=== PATIENT | female | born 1940 | race Caucasian/White ===

== ENCOUNTER 2017-08-06 17:18 | Emergency (ER) | payer BC ==
[~2017-08-06] VITALS: Ht 162.6 cm; Wt 65.8 kg
[~2017-08-06 17:18] MED LIST: ASPI81CH PO; ATEN25 PO; CALCA500CH; CHOL10002 PO
[2017-08-06 18:11] LABS: BASOPHILS ABSOLUTE AUTO 0.02 K/mm3 (0.00-0.23); BASOPHILS PERCENT AUTO 0 % (0-2); EOSINOPHILS ABSOLUTE AUTO 0.04 K/mm3 (0.00-0.68); EOSINOPHILS PERCENT AUTO 1 % (0-6); Hematocrit 40.2 % (33.0-51.0); Hemoglobin 13.2 g/dL (11.5-16.0); IMMATURE GRAN ABSOLUTE AUTO 0.03 K/mm3 (0.00-0.10); IMMATURE GRAN PERCENT AUTO 0 % (0-1); LYMPHOCYTES ABSOLUTE AUTO 0.46 K/mm3 (0.84-5.20); LYMPHOCYTES PERCENT AUTO 7 % (21-46); MONOCYTES PERCENT AUTO 6 % (4-13); Mean Corpuscular HGB 31.4 pg (26.0-34.0); Mean Corpuscular HGB Conc 32.8 g/dL (31.5-36.5); Mean Corpuscular Volume 96 fL (80-100); NEUTROPHILS ABSOLUTE AUTO 5.83 K/mm3 (1.96-9.15); NEUTROPHILS PERCENT AUTO 86 % (41-73); RDW Coefficient Variation 12.6 % (11.7-14.2); RDW Standard Deviation 43.7 fL (35.1-46.3); Red Blood Cell Count 4.21 M/mm3 (3.80-5.20); White Blood Cell Count 6.78 K/mm3 (4.00-11.30)
[2017-08-06 18:16] LABS: Mean Platelet Volume 10.8 fL (9.1-12.4); Platelet Count 100 K/mm3 (150-400)
[2017-08-06 18:28] LABS: Alanine Aminotransfer (ALT/SGP 27 U/L (12-78); Albumin, Blood 3.7 g/dL (3.4-5.0); Alk Phos 65 U/L (50-136); Anion Gap 15 mmol/L (6-16); Aspartate Aminotrans (AST/SGOT 36 U/L (12-37); Bilirubin, Total 0.8 mg/dL (0.1-1.0); Blood Urea Nitrogen 24 mg/dL (8-24); Bun/Creatinine Ratio 22.6 (12.0-20.0); CO2, Blood 24 mmol/L (21-32); Calcium, Blood 8.7 mg/dL (8.5-10.1); Chloride, Blood 103 mmol/L (98-108); Creatinine, Blood 1.06 mg/dL (0.40-1.00); Globulin, Blood 3.7 g/dL (2.2-4.0); Glomerular Filtration Rate 54 (60-); Glucose, Blood 102 mg/dL (70-99); Potassium, Blood 3.8 mmol/L (3.5-5.5); Sodium, Blood 142 mmol/L (136-145); Total Protein, Blood 7.4 g/dL (6.4-8.2); Troponin I <0.015 ng/mL (0.000-0.040)
== END 2017-08-06 19:02 | disposition home or self-care (01) ==
LOC: ER 17:18
PROVIDERS: Emergency Medicine
DX: R55 Syncope and collapse (principal); E86.0 Dehydration; I10 Essential (primary) hypertension; Z90.49 Acquired absence of other specified parts of digestive tract; Z90.89 Acquired absence of other organs
CPT/HCPCS: 36415; 71046; 80053; 82947; 84484; 85025; 93005; 93010; 99283

== ENCOUNTER 2017-08-06 21:35 | Observation (INO) | payer BC ==
[~2017-08-06] VITALS: Ht 162.6 cm; Wt 64.0 kg
[2017-08-07 00:04] LABS: CPK Creatine Kinase 123 U/L (26-193); Troponin I <0.015 ng/mL (0.000-0.040)
[2017-08-07 00:05] LABS: Magnesium, Blood 1.8 mg/dL (1.6-2.4)
[2017-08-07 00:07] LABS: Alanine Aminotransfer (ALT/SGP 31 U/L (12-78); Albumin, Blood 3.5 g/dL (3.4-5.0); Albumin/Globulin Ratio 0.9 (0.8-1.8); Alk Phos 58 U/L (50-136); Anion Gap 9 mmol/L (6-16); Aspartate Aminotrans (AST/SGOT 33 U/L (12-37); Bilirubin, Total 0.8 mg/dL (0.1-1.0); Blood Urea Nitrogen 21 mg/dL (8-24); Bun/Creatinine Ratio 21.9 (12.0-20.0); CO2, Blood 24 mmol/L (21-32); Calcium, Blood 8.3 mg/dL (8.5-10.1); Chloride, Blood 104 mmol/L (98-108); Creatinine, Blood 0.96 mg/dL (0.40-1.00); Globulin, Blood 3.8 g/dL (2.2-4.0); Glomerular Filtration Rate >60 (60-); Glucose, Blood 107 mg/dL (70-99); Potassium, Blood 3.6 mmol/L (3.5-5.5); Sodium, Blood 137 mmol/L (136-145); Total Protein, Blood 7.3 g/dL (6.4-8.2)
[2017-08-07 07:43] LABS: BASOPHILS ABSOLUTE AUTO 0.02 K/mm3 (0.00-0.23); BASOPHILS PERCENT AUTO 1 % (0-2); EOSINOPHILS ABSOLUTE AUTO 0.01 K/mm3 (0.00-0.68); EOSINOPHILS PERCENT AUTO 0 % (0-6); Hematocrit 32.9 % (33.0-51.0); Hemoglobin 11.1 g/dL (11.5-16.0); IMMATURE GRAN ABSOLUTE AUTO 0.01 K/mm3 (0.00-0.10); IMMATURE GRAN PERCENT AUTO 0 % (0-1); LYMPHOCYTES ABSOLUTE AUTO 0.64 K/mm3 (0.84-5.20); LYMPHOCYTES PERCENT AUTO 16 % (21-46); MONOCYTES ABSOLUTE AUTO 0.47 K/mm3 (0.16-1.47); MONOCYTES PERCENT AUTO 12 % (4-13); Mean Corpuscular HGB 31.9 pg (26.0-34.0); Mean Corpuscular HGB Conc 33.7 g/dL (31.5-36.5); Mean Corpuscular Volume 95 fL (80-100); Mean Platelet Volume 9.5 fL (9.1-12.4); NEUTROPHILS ABSOLUTE AUTO 2.82 K/mm3 (1.96-9.15); NEUTROPHILS PERCENT AUTO 71 % (41-73); Platelet Count 107 K/mm3 (150-400); RDW Coefficient Variation 12.6 % (11.7-14.2); RDW Standard Deviation 43.8 fL (35.1-46.3); Red Blood Cell Count 3.48 M/mm3 (3.80-5.20); White Blood Cell Count 3.97 K/mm3 (4.00-11.30)
[2017-08-07 08:00] LABS: Alanine Aminotransfer (ALT/SGP 24 U/L (12-78); Albumin/Globulin Ratio 0.9 (0.8-1.8); Alk Phos 51 U/L (50-136); Anion Gap 8 mmol/L (6-16); Aspartate Aminotrans (AST/SGOT 29 U/L (12-37); Bilirubin, Total 0.8 mg/dL (0.1-1.0); Blood Urea Nitrogen 21 mg/dL (8-24); Bun/Creatinine Ratio 22.1 (12.0-20.0); CO2, Blood 25 mmol/L (21-32); Calcium, Blood 7.8 mg/dL (8.5-10.1); Chloride, Blood 105 mmol/L (98-108); Creatinine, Blood 0.95 mg/dL (0.40-1.00); Globulin, Blood 3.3 g/dL (2.2-4.0); Glomerular Filtration Rate >60 (60-); Glucose, Blood 90 mg/dL (70-99); Potassium, Blood 3.4 mmol/L (3.5-5.5); Sodium, Blood 138 mmol/L (136-145); Total Protein, Blood 6.3 g/dL (6.4-8.2)
[2017-08-07 08:03] LABS: Troponin I 0.025 ng/mL (0.000-0.040)
[2017-08-07 12:21] LABS: Influenza A Positive (NEGATIVE); Influenza B Negative (NEGATIVE)
[2017-08-07 21:06] LABS: Source, Urine Clean Catch
[2017-08-07 21:09] LABS: Appearance, Urine Clear (Clear); Bilirubin, Urine Neg (Neg); Blood, Urine 1+ (Neg); Color, Urine Yellow (P-Yellow); Glucose Qualitative, Urine Neg (Neg); Ketones, Urine Neg (Neg); Leukocyte Esterase, Urine 2+ (Neg); Nitrite, Urine Pos (Neg); Protein, Urine Neg (Neg); Specific Gravity, Urine 1.015 (1.003-1.022); Urobilinogen, Urine NORM (Normal)
[2017-08-07 21:22] LABS: Bacteria Many /hpf; Red Blood Cells, Urine 0-2 /hpf (0-2); Squamous Epithelial Cells Few /hpf (Few)
[2017-08-08 03:49] LABS: BASOPHILS ABSOLUTE AUTO 0.03 K/mm3 (0.00-0.23); BASOPHILS PERCENT AUTO 1 % (0-2); EOSINOPHILS ABSOLUTE AUTO 0.03 K/mm3 (0.00-0.68); EOSINOPHILS PERCENT AUTO 1 % (0-6); IMMATURE GRAN ABSOLUTE AUTO 0.02 K/mm3 (0.00-0.10); IMMATURE GRAN PERCENT AUTO 0 % (0-1); LYMPHOCYTES ABSOLUTE AUTO 1.19 K/mm3 (0.84-5.20); LYMPHOCYTES PERCENT AUTO 20 % (21-46); MONOCYTES ABSOLUTE AUTO 0.59 K/mm3 (0.16-1.47); MONOCYTES PERCENT AUTO 10 % (4-13); Mean Corpuscular HGB 31.4 pg (26.0-34.0); Mean Corpuscular HGB Conc 33.3 g/dL (31.5-36.5); Mean Corpuscular Volume 94 fL (80-100); Mean Platelet Volume 10.1 fL (9.1-12.4); NEUTROPHILS ABSOLUTE AUTO 4.01 K/mm3 (1.96-9.15); NEUTROPHILS PERCENT AUTO 68 % (41-73); Platelet Count 111 K/mm3 (150-400); RDW Coefficient Variation 12.6 % (11.7-14.2); RDW Standard Deviation 43.6 fL (35.1-46.3); White Blood Cell Count 5.87 K/mm3 (4.00-11.30)
[2017-08-08 04:14] LABS: Bun/Creatinine Ratio 19.2 (12.0-20.0); Calcium, Blood 7.4 mg/dL (8.5-10.1); Creatinine, Blood 1.04 mg/dL (0.40-1.00); Potassium, Blood 3.6 mmol/L (3.5-5.5); Troponin I 0.024 ng/mL (0.000-0.040)
[2017-08-08] MEDS ORDERED: OSEL75CA PO (13:12)
== END 2017-08-08 13:59 | disposition home or self-care (01) ==
LOC: ER 21:35 → PCU 21:36
PROVIDERS: Family Medicine; Internal Medicine
DX: R55 Syncope and collapse (principal); J09.X2 Influenza due to identified novel influenza A virus with other respiratory manifestations; I12.9 Hypertensive chronic kidney disease with stage 1 through stage 4 chronic kidney disease, or unspecified chronic kidney disease; I35.0 Nonrheumatic aortic (valve) stenosis; N18.3 Chronic kidney disease, stage 3 (moderate); E86.0 Dehydration; I49.1 Atrial premature depolarization; Z88.1 Allergy status to other antibiotic agents; Z88.8 Allergy status to other drugs, medicaments and biological substances; Z91.048 Other nonmedicinal substance allergy status; Z90.49 Acquired absence of other specified parts of digestive tract; Z85.3 Personal history of malignant neoplasm of breast; Z90.89 Acquired absence of other organs
CPT/HCPCS: 36415; 70450; 80048; 80053; 81001; 82550; 83735; 84484; 85025; 87077; 87086; 87186; 87804; 93005; 93010; 93306; 93970; 96360; 96361; 99285; C1751; G0378; J1650; J7030

== ENCOUNTER 2018-07-07 07:27 | Day surgery (SDC) | payer BC ==
[~2018-07-07] VITALS: Ht 162.6 cm; Wt 60.5 kg
[~2018-07-07 07:27] MED LIST changes: +OSEL75CA PO
--- NOTE | 2018-07-07 08:23 | NUR ---
07/07/18 0823 Janel Fenton 1 IV MISS IN RW BY MEET VALVE 1 GOOD IV IN RH BY MEET PT TOW
== END 2018-07-07 10:00 | disposition home or self-care (01) ==
LOC: ORSCSDS 07:27
PROVIDERS: Internal Medicine Gastroenterology
PROC: 0DBN8ZX Excision of Sigmoid Colon, Via Natural or Artificial Opening Endoscopic, Diagnostic (ICD-10-PCS; principal; 2018-07-07 09:00)
DX: Z12.11 Encounter for screening for malignant neoplasm of colon (principal); D12.5 Benign neoplasm of sigmoid colon; K57.30 Diverticulosis of large intestine without perforation or abscess without bleeding; I10 Essential (primary) hypertension; K44.9 Diaphragmatic hernia without obstruction or gangrene; Z86.010 Personal history of colon polyps; Z79.82 Long term (current) use of aspirin; Z79.899 Other long term (current) drug therapy
CPT/HCPCS: 88305; J7120

== ENCOUNTER → 2018-12-20 | Outpatient (CLI) | payer BC ==
[2018-12-21 15:06] LABS: HPV 16 Negative (Negative); HPV 18 Negative (Negative); HPV OTHER HR TYPES Negative (Negative)
== END | disposition home or self-care (01) ==
LOC: LAB SHORT 12:39 → LAB 12:39
PROVIDERS: Obstetrics & Gynecology Gynecology
DX: Z12.4 Encounter for screening for malignant neoplasm of cervix (principal)
CPT/HCPCS: 87624; G0123

== ENCOUNTER 2019-07-05 12:04 | Emergency (ER) | payer BC ==
[~2019-07-05] VITALS: Ht 162.6 cm; Wt 59.0 kg
[~2019-07-05 12:04] MED LIST changes: -CHOL10002 PO; +VITAMIN D350 MCG PO
[2019-07-05 14:16] LABS: Hemoglobin 11.9 g/dL (11.5-16.0); Mean Corpuscular HGB 30.9 pg (26.0-34.0); Mean Corpuscular HGB Conc 33.1 g/dL (31.5-36.5); Mean Corpuscular Volume 94 fL (80-100); Mean Platelet Volume 9.8 fL (9.1-12.4); Platelet Count 275 K/mm3 (150-400); RDW Coefficient Variation 12.6 % (11.7-14.2); RDW Standard Deviation 43.4 fL (35.1-46.3); Red Blood Cell Count 3.85 M/mm3 (3.80-5.20); White Blood Cell Count 9.72 K/mm3 (4.00-11.30)
[2019-07-05 14:29] LABS: Alanine Aminotransfer (ALT/SGP 21 U/L (12-78); Albumin, Blood 2.8 g/dL (3.4-5.0); Albumin/Globulin Ratio 0.6 (0.8-1.8); Alk Phos 91 U/L (50-136); Anion Gap 11 mmol/L (6-16); Aspartate Aminotrans (AST/SGOT 21 U/L (12-37); Blood Urea Nitrogen 19 mg/dL (8-24); Bun/Creatinine Ratio 20.8 (12.0-20.0); CO2, Blood 22 mmol/L (21-32); Chloride, Blood 104 mmol/L (98-108); Creatinine, Blood 0.91 mg/dL (0.40-1.00); Globulin, Blood 4.8 g/dL (2.2-4.0); Glomerular Filtration Rate >60 (60-); Glucose, Blood 90 mg/dL (70-99); Potassium, Blood 3.9 mmol/L (3.5-5.5); Sodium, Blood 137 mmol/L (136-145); Total Protein, Blood 7.6 g/dL (6.4-8.2)
[2019-07-05 15:15] LABS: Source, Urine Clean Catch
[2019-07-05 15:17] LABS: Bilirubin, Urine Neg (Neg); Blood, Urine Neg (Neg); Glucose Qualitative, Urine Neg (Neg); Ketones, Urine 3+ (Neg); Leukocyte Esterase, Urine 1+ (Neg); Nitrite, Urine Pos (Neg); Protein, Urine 2+ (Neg); Urobilinogen, Urine NORM (Normal)
[2019-07-05 15:17] LABS: BAND PERCENT MAN 1 % (0-8); BASOPHILS PERCENT MAN 0 % (0-2); EOSINOPHILS ABSOLUTE MAN 0.09 K/mm3 (0.00-0.68); EOSINOPHILS PERCENT MAN 1 % (0-6); LYMPHOCYTES ABSOLUTE MAN 0.87 K/mm3 (0.84-5.20); LYMPHOCYTES PERCENT MAN 9 % (21-46); MONOCYTES ABSOLUTE MAN 0.58 K/mm3 (0.16-1.47); MONOCYTES PERCENT MAN 6 % (4-13); MYELOCYTE ABSOLUTE MAN 0.19 K/mm3 (0.00-0.00); MYELOCYTE PERCENT MAN 2 % (0-0); NEUTROPHILS ABSOLUTE MAN 7.97 K/mm3 (1.96-9.15); SEG NEUTROPHILS PERCENT MAN 81 % (41-73); TOTAL CELLS COUNTED 100
[2019-07-05 15:34] LABS: Appearance, Urine Hazy (Clear); Color, Urine Yellow (P-Yellow)
[2019-07-05 15:35] LABS: Bacteria Many /hpf; Red Blood Cells, Urine 0-2 /hpf (0-2); Squamous Epithelial Cells Few /hpf (Few)
[2019-07-05] MEDS ORDERED: CALCIUM 600 +1 EA11 PO (15:57)
[2019-07-05] MEDS ORDERED: ONDA4ODT MM (17:03)
[2019-07-05] MEDS ORDERED: CEFD300 PO (17:03)
[2019-07-05] MEDS ORDERED: Roxicodone5 MG PO (17:03)
[2019-07-26] MEDS ORDERED: Ferrous Sulfat325 M2 PO (05:19)
== END 2019-07-05 18:00 | disposition home or self-care (01) ==
LOC: ER 12:04
PROVIDERS: Emergency Medicine
DX: K52.9 Noninfective gastroenteritis and colitis, unspecified (principal); J18.9 Pneumonia, unspecified organism; N30.90 Cystitis, unspecified without hematuria; I12.9 Hypertensive chronic kidney disease with stage 1 through stage 4 chronic kidney disease, or unspecified chronic kidney disease; N18.9 Chronic kidney disease, unspecified; Z88.8 Allergy status to other drugs, medicaments and biological substances; Z88.1 Allergy status to other antibiotic agents; Z91.048 Other nonmedicinal substance allergy status; Z79.899 Other long term (current) drug therapy; Z79.82 Long term (current) use of aspirin
CPT/HCPCS: 36415; 74177; 80053; 81001; 83690; 85025; 87077; 87086; 87186; 93005; 93010; 96361; 96365-59; 96375; 99284-25; J0696; J1170; J1885; J2405; J7030; Q9967

== ENCOUNTER 2019-07-07 12:19 | Emergency (ER) | payer BC ==
[~2019-07-07] VITALS: Ht 162.6 cm; Wt 59.0 kg
[~2019-07-07 12:19] MED LIST changes: +CALCIUM 600 +1 EA11 PO; +CEFD300 PO; +ONDA4ODT MM; +Roxicodone5 MG PO
[2019-07-07 12:50] LABS: BASOPHILS ABSOLUTE AUTO 0.11 K/mm3 (0.00-0.23); BASOPHILS PERCENT AUTO 1 % (0-2); EOSINOPHILS PERCENT AUTO 0 % (0-6); Hematocrit 48.6 % (33.0-51.0); Hemoglobin 15.3 g/dL (11.5-16.0); IMMATURE GRAN ABSOLUTE AUTO 0.19 K/mm3 (0.00-0.10); IMMATURE GRAN PERCENT AUTO 2 % (0-1); LYMPHOCYTES ABSOLUTE AUTO 0.69 K/mm3 (0.84-5.20); LYMPHOCYTES PERCENT AUTO 7 % (21-46); MONOCYTES ABSOLUTE AUTO 0.39 K/mm3 (0.16-1.47); MONOCYTES PERCENT AUTO 4 % (4-13); Mean Corpuscular HGB 30.7 pg (26.0-34.0); Mean Corpuscular HGB Conc 31.5 g/dL (31.5-36.5); Mean Platelet Volume 10.1 fL (9.1-12.4); NEUTROPHILS ABSOLUTE AUTO 8.59 K/mm3 (1.96-9.15); NEUTROPHILS PERCENT AUTO 86 % (41-73); Platelet Count 322 K/mm3 (150-400); RDW Coefficient Variation 12.4 % (11.7-14.2); RDW Standard Deviation 44.8 fL (35.1-46.3); Red Blood Cell Count 4.98 M/mm3 (3.80-5.20); White Blood Cell Count 9.97 K/mm3 (4.00-11.30)
[2019-07-07 12:53] LABS: Mean Corpuscular Volume 98 fL (80-100)
[2019-07-07 13:12] LABS: Alanine Aminotransfer (ALT/SGP 21 U/L (12-78); Albumin, Blood 2.7 g/dL (3.4-5.0); Albumin/Globulin Ratio 0.5 (0.8-1.8); Alk Phos 95 U/L (50-136); Anion Gap 13 mmol/L (6-16); Aspartate Aminotrans (AST/SGOT 59 U/L (12-37); Bilirubin, Total 0.8 mg/dL (0.1-1.0); Blood Urea Nitrogen 16 mg/dL (8-24); Bun/Creatinine Ratio 17.6 (12.0-20.0); CO2, Blood 17 mmol/L (21-32); Calcium, Blood 8.8 mg/dL (8.5-10.1); Chloride, Blood 103 mmol/L (98-108); Creatinine, Blood 0.91 mg/dL (0.40-1.00); Globulin, Blood 5.2 g/dL (2.2-4.0); Glomerular Filtration Rate >60 (60-); Glucose, Blood 92 mg/dL (70-99); Potassium, Blood 4.7 mmol/L (3.5-5.5); Sodium, Blood 133 mmol/L (136-145); Total Protein, Blood 7.9 g/dL (6.4-8.2)
[2019-07-07] MEDS ORDERED: COMPAZINE10 MG PO (14:08)
[2019-07-07] MEDS ORDERED: ONDA4ODT MM (16:24)
[2019-07-07] MEDS ORDERED: RALO60 PO (18:40)
[2019-07-07] MEDS ORDERED: LATA.005SO BOTHEYES (18:40)
[2019-07-26] MEDS ORDERED: Ferrous Sulfat325 M2 PO (05:19)
== END 2019-07-07 16:35 | disposition home or self-care (01) ==
LOC: ER 12:19
PROVIDERS: Emergency Medicine
DX: K52.9 Noninfective gastroenteritis and colitis, unspecified (principal); N30.90 Cystitis, unspecified without hematuria; E86.0 Dehydration; Z88.1 Allergy status to other antibiotic agents; Z88.8 Allergy status to other drugs, medicaments and biological substances; Z91.048 Other nonmedicinal substance allergy status; Z79.899 Other long term (current) drug therapy; I10 Essential (primary) hypertension
CPT/HCPCS: 80053; 85025; 93005; 93010; 96374; 96375; 99284-25; J0696; J0780; J3010; J7030

== ENCOUNTER 2019-07-07 16:48 | Inpatient (IN) | payer BC, MEDICARE ==
[~2019-07-07] VITALS: Ht 167.6 cm; Wt 64.4 kg
[~2019-07-07 16:48] MED LIST changes: +COMPAZINE10 MG PO
[2019-07-07 17:20] LABS: Calcium, Ionized (POC) 0.99 mmol/L (1.10-1.46); Chloride (POC) 106 mmol/L (98-108); Creatinine (POC) 0.8 mg/dL (0.6-1.0); Glucose (ISTAT POC) 91 mg/dL (70-99); Hemoglobin (POC) 15.3 g/dL (12.0-16.0); Potassium (POC) 4.7 mmol/L (3.5-5.5); Sodium (POC) 136 mmol/L (135-148); Total CO2 (POC) 19 mmol/L (21-32)
[2019-07-07 17:55] LABS: BASOPHILS ABSOLUTE AUTO 0.05 K/mm3 (0.00-0.23); BASOPHILS PERCENT AUTO 1 % (0-2); EOSINOPHILS PERCENT AUTO 0 % (0-6); Hematocrit 46.2 % (33.0-51.0); Hemoglobin 14.8 g/dL (11.5-16.0); IMMATURE GRAN PERCENT AUTO 2 % (0-1); LYMPHOCYTES ABSOLUTE AUTO 0.91 K/mm3 (0.84-5.20); LYMPHOCYTES PERCENT AUTO 10 % (21-46); MONOCYTES ABSOLUTE AUTO 0.33 K/mm3 (0.16-1.47); MONOCYTES PERCENT AUTO 4 % (4-13); Mean Corpuscular HGB 30.5 pg (26.0-34.0); Mean Platelet Volume 9.3 fL (9.1-12.4); NEUTROPHILS ABSOLUTE AUTO 7.88 K/mm3 (1.96-9.15); NEUTROPHILS PERCENT AUTO 84 % (41-73); Platelet Count 330 K/mm3 (150-400); RDW Coefficient Variation 12.5 % (11.7-14.2); Red Blood Cell Count 4.86 M/mm3 (3.80-5.20); White Blood Cell Count 9.37 K/mm3 (4.00-11.30)
[2019-07-07 18:14] LABS: Mean Corpuscular Volume 95 fL (80-100)
[2019-07-07 18:17] LABS: Alanine Aminotransfer (ALT/SGP 19 U/L (12-78); Albumin, Blood 2.4 g/dL (3.4-5.0); Albumin/Globulin Ratio 0.5 (0.8-1.8); Alk Phos 84 U/L (50-136); Anion Gap 13 mmol/L (6-16); Aspartate Aminotrans (AST/SGOT 39 U/L (12-37); Bilirubin, Total 0.6 mg/dL (0.1-1.0); Blood Urea Nitrogen 16 mg/dL (8-24); Bun/Creatinine Ratio 18.1 (12.0-20.0); CO2, Blood 18 mmol/L (21-32); Chloride, Blood 106 mmol/L (98-108); Creatinine, Blood 0.88 mg/dL (0.40-1.00); Free Thyroxine 1.32 ng/dL (0.70-1.60); Globulin, Blood 4.5 g/dL (2.2-4.0); Glomerular Filtration Rate >60 (60-); Glucose, Blood 84 mg/dL (70-99); Potassium, Blood 4.5 mmol/L (3.5-5.5); Sodium, Blood 137 mmol/L (136-145); Total Protein, Blood 6.9 g/dL (6.4-8.2); Troponin I 0.049 ng/mL (0.000-0.040)
[2019-07-07 18:20] LABS: Triiodothyronine, Free 1.13 pg/mL (2.18-3.98)
[2019-07-07] MEDS ORDERED: RALO60 PO (18:40)
[2019-07-07] MEDS ORDERED: LATA.005SO BOTHEYES (18:40)
--- NOTE | 2019-07-07 22:30 | NUR ---
ADMIT NOTE HANDOFF REPORT RECEIVED FROM ER NURSE SANJUANITA. PT TRANSFERED TO MED FLOOR VIA GURNEY. PT ORIENTED TO UNIT. PT ENCOURAGED TO SEND HOME VALUABLES. CALL BUTTON WITHIN REACH. IV FLUIDS ADMINISTERED ORDERED. I RETURNED FAMILY MEMBER'S PHONE CALL WITH PT PERMISSION. TELEMETRY IS MONITORING. RESPIRATORY PANEL COLLECTED AND SENT TO LAB. HAT IS IN TOILET FOR HOPEFUL URINE SPECIMEN. SPUTUM SAMPLE CUP IS ON PT TABLE AWAITING HOPEFUL SPUTUM SAMPLE.
[2019-07-07 23:14] LABS: Adenovirus Not Detected (NOT DETECT); Bordetella pertussis Not Detected (NOT DETECT); Chlamydophila pneumoniae Not Detected (NOT DETECT); Coronavirus 229E Not Detected (NOT DETECT); Coronavirus HKU1 Not Detected (NOT DETECT); Coronavirus NL63 Not Detected (NOT DETECT); Coronavirus OC43 Not Detected (NOT DETECT); Human Metapneumovirus Not Detected (NOT DETECT); Human Rhinovirus/Enterovirus Not Detected (NOT DETECT); Influenza A Not Detected (NOT DETECT); Influenza A/2009-H1 Not Detected (NOT DETECT); Influenza A/H1 Not Detected (NOT DETECT); Influenza A/H3 Not Detected (NOT DETECT); Influenza B Detected (NOT DETECT); Mycoplasma pneumoniae Not Detected (NOT DETECT); Parainfluenza Virus 1 Not Detected (NOT DETECT); Parainfluenza Virus 2 Not Detected (NOT DETECT); Parainfluenza Virus 3 Not Detected (NOT DETECT); Parainfluenza Virus 4 Not Detected (NOT DETECT); Respiratory Syncytial Virus Not Detected (NOT DETECT)
--- NOTE | 2019-07-08 00:38 | NUR ---
RESP PANEL RESULTS RESPIRATORY PANEL CAME BACK POSITIVE FOR INFLUENZA B VIRUS. I HAVE NOW PUT THE PT IN DROPLET/CONTACT PRECAUTIONS.
[2019-07-08 04:08] LABS: Source, Urine Clean Catch
[2019-07-08 04:10] LABS: Bilirubin, Urine Neg (Neg); Blood, Urine Neg (Neg); Glucose Qualitative, Urine Neg (Neg); Ketones, Urine 4+ (Neg); Leukocyte Esterase, Urine Neg (Neg); Nitrite, Urine Neg (Neg); Protein, Urine 3+ (Neg); Urobilinogen, Urine NORM (Normal)
--- NOTE | 2019-07-08 04:11 | NUR ---
PCU SHIPYARD SUPERVISOR REPORT PCU SHIPYARD SUPERVISOR REPORTED PT HEART RATE HAD RISEN TO 134 BPM. I CHECKED ON PT WHO WAS ASYMPTOMATIC. CALLED PCU BACK AND THE TECH REPORTED HR HAD NORMALIZED TO NSR @ 95 BPM W/PVC'S.
--- NOTE | 2019-07-08 04:15 | NUR ---
PCU WINDLACE MACHINE OPERATOR REPORT PCU CALLED ME TO REPORT THAT PT WAS TACHY @ 134 BPM. I CHECKED ON PT WHO WAS ASYMPTOMATIC. I THEN CALLED PCU BACK AND THEY REPORTED PT WAS NOW NSR @ 95 BPM.
[2019-07-08 04:33] LABS: Appearance, Urine Clear (Clear); Color, Urine Yellow (P-Yellow); Red Blood Cells, Urine Not Seen /hpf (0-2); White Blood Cells, Urine Rare /hpf (0-5)
[2019-07-08 04:34] LABS: Amorphous Light (0-Heavy); Bacteria Few /hpf; Mucus Light (0-Heavy); Squamous Epithelial Cells Few /hpf (Few)
--- NOTE | 2019-07-08 04:40 | NUR ---
SHIFT SUMMARY ADMITTED FOR RT MID LOBE PNEUMONIA/SYNCOPE, N/V. DNI CODE. I COLLECTED RESPIRATORY PANEL WHICH WAS POSITIVE FOR INFLUENZA B. THIS PT IS NOW IN DROPLET/CONTACT PRECAUTIONS FOR FLU. TROPONINS WERE 0.049 IN ER. NOW ARE DOWNTRENDING TO 0.043. TELEMETRY IS MONITORING. HR RISES TO 130'S, THEN FALLS TO 90'S BPM. PLAN IS FOR IV ANTIBIOTICS FOR PNEUMONIA, ROCEPHIN FOR UTI, ABDOMINAL ULTRASOUND TO INVESTIGATE ABNORMALITIES. PT HAS BEEN MEDICATED FOR NAUSEA 2 X'S THIS SHIFT. CLEAR LIQUID DIET. RA. 1 STANDBY ASSIST TO BATHROOM.
[2019-07-08 05:41] LABS: BASOPHILS ABSOLUTE AUTO 0.05 K/mm3 (0.00-0.23); BASOPHILS PERCENT AUTO 1 % (0-2); EOSINOPHILS PERCENT AUTO 0 % (0-6); Hematocrit 43.6 % (33.0-51.0); Hemoglobin 13.9 g/dL (11.5-16.0); IMMATURE GRAN ABSOLUTE AUTO 0.16 K/mm3 (0.00-0.10); IMMATURE GRAN PERCENT AUTO 2 % (0-1); LYMPHOCYTES ABSOLUTE AUTO 0.64 K/mm3 (0.84-5.20); LYMPHOCYTES PERCENT AUTO 6 % (21-46); MONOCYTES ABSOLUTE AUTO 0.35 K/mm3 (0.16-1.47); MONOCYTES PERCENT AUTO 4 % (4-13); Mean Corpuscular HGB 31.2 pg (26.0-34.0); Mean Corpuscular HGB Conc 31.9 g/dL (31.5-36.5); Mean Platelet Volume 9.8 fL (9.1-12.4); NEUTROPHILS ABSOLUTE AUTO 8.85 K/mm3 (1.96-9.15); NEUTROPHILS PERCENT AUTO 88 % (41-73); Platelet Count 328 K/mm3 (150-400); RDW Coefficient Variation 12.6 % (11.7-14.2); Red Blood Cell Count 4.45 M/mm3 (3.80-5.20); White Blood Cell Count 10.05 K/mm3 (4.00-11.30)
[2019-07-08 05:42] LABS: Mean Corpuscular Volume 98 fL (80-100)
[2019-07-08 06:17] LABS: Bun/Creatinine Ratio 18.2 (12.0-20.0); Creatinine, Blood 0.99 mg/dL (0.40-1.00); Potassium, Blood 4.1 mmol/L (3.5-5.5); Troponin I 0.037 ng/mL (0.000-0.040)
--- NOTE | 2019-07-08 12:55 | NUR ---
ECHOCARDIOGRAM COMPLETE
--- NOTE | 2019-07-08 14:13 | NUR ---
PER PATIENT OK TO TALK TO FAMILY ABOUT HER. DAUGHTER AND SON, DASIA , HAVE CALLED.
--- NOTE | 2019-07-08 15:13 | NUR ---
ALERT. ORIENTED. MEDICATED FOR NAUSEA AND PAIN WITH GOOD RESULTS. HAD ST EARLIER, FLUIDS STARTED. PATIENT NOW SR IN 80'S. COOPERATIVE. PLEASANT. POOR APPETITE. ABLE TO MAKE NEEDS KNOWN. WCTM
--- NOTE | 2019-07-09 04:39 | NUR ---
SHIFT SUMMARY DIAGNOSED WITH PNEUMONIA/ENTEROCOLITIS. POSITIVE FOR INFLUENZA B. DNI CODE. LR IS INFUSING @ 100 ML/HR. DROPLET/CONTACT PRECAUTIONS FOR FLU. TELEMETRY IS MONITORING. FOR TWO BRIEF MOMENTS PCU SERVICE BAR CASHIER REPORTED TACHYCARDIA IN THE 130'S, BUT QUICKLY THE HR FELL BACK TO HER BASELINE 80'S BPM. CLEAR LIQUID DIET. RA, A&O X4, 1 ASSIST. HOPEFUL FOR DC TOMORROW.
--- NOTE | 2019-07-09 15:41 | NUR ---
ALERT. ORIENTED. STILL WITH INTERMITTENT NAUSEA. POOR APPETITE OF CLEAR LIQUIDS. IS TAKING IN ICE CHIPS. TELE ON. IV PATENT. HAD SHOWER AND WAS VERY TIRED AFTERWARDS. PLEASANT. COOPERATIVE. CAN ADVANCE DIET DESIRED PER MD. ABLE TO MAKE NEEDS KNOWN. WCTM
[2019-07-10 06:03] LABS: Anion Gap 10 mmol/L (6-16); Blood Urea Nitrogen 22 mg/dL (8-24); Bun/Creatinine Ratio 25.3 (12.0-20.0); CO2, Blood 22 mmol/L (21-32); Calcium, Blood 8.1 mg/dL (8.5-10.1); Chloride, Blood 108 mmol/L (98-108); Creatinine, Blood 0.87 mg/dL (0.40-1.00); Glomerular Filtration Rate >60 (60-); Glucose, Blood 92 mg/dL (70-99); Potassium, Blood 3.8 mmol/L (3.5-5.5); Sodium, Blood 140 mmol/L (136-145)
--- NOTE | 2019-07-10 06:19 | NUR ---
SHIFT SUMMARY- PT. WITH NA/VOMITING LAST NIGHT AND ALSO HAVING LOOSE STOOLS. MEDICATED SEVERAL TIMES T/O THE SHIFT PER EMAR. PT. HAD SOME RELIEF AND ABLE TO SLEEP SOME DURING THE NIGHT. PT. IS A&O, INDEPENDENT IN ROOM. DENIED ANY PAIN LAST NIGHT. IV FLUIDS RUNNING. PT. RESTING COMFORTABLY IN BED, NO APPARENT DISTRESS NOTED. CALL LIGHT WITHIN REACH AND SIDE RAILS UP X2. WILL CONT TO MONITOR.
--- NOTE | 2019-07-10 10:35 | NUR ---
INFORMED DR MINA OF LOOSE STOOL OVER AIR GUN OPERATOR X4, HE ORDERED STOOL SAMPLE
--- NOTE | 2019-07-10 14:36 | NUR ---
Patient is sitting up in bed and alert. Patient tells me that the last time she saw me was when I was the providing spiritual care services when patient's last February. This visit we talked about how she is doing with the work of bereavement, how the family is doing and the medical issues she is currently dealing with. I conduct a life review, listen empathically, explore confucianist beliefs and provide grief support and prayer. Patient responds well and voices appreciation for the prayer. I will continue to remain available to patient and family.
--- NOTE | 2019-07-10 19:32 | NUR ---
SHIFT SUMMARY JASON WAS VERY NAUSEOUS TODAY, PAIN WAS MINIMAL. MOST USEFUL MEDICATION WAS IV PHENERGAN. GI CONSULT PUT IN, PT CHANGED TO NPO, PT AWARE. DR AKERS CALLED AND LEFT MESSAGE [facility] ANSWERING SERVICE. UNABLE TO GET BM THIS SHIFT DUE TO HAVING IT BE MIXED IN URINE. SPOKE TO SON DASIA SEVERAL TIMES. TELE DC'D. INDEP TO BR. TOOK MEDS PRESCRIBED. CALL LIGHT IN REACH, [facility]
[2019-07-10 21:47] LABS: Adenovirus F 40/41 Not Detected (NOT DETECT); Astrovirus Not Detected (NOT DETECT); Campylobacter Sp Not Detected (NOT DETECT); Cryptosporidium Not Detected (NOT DETECT); Cyclospora Cayetanensis Not Detected (NOT DETECT); E. Coli O157 Not Detected (NOT DETECT); Entamoeba Histolytica Not Detected (NOT DETECT); Enteroaggregative E. coli-EAEC Not Detected (NOT DETECT); Enteropathogenic E. coli-EPEC Not Detected (NOT DETECT); Enterotoxigenic E. coli-ETEC Not Detected (NOT DETECT); Giardia Lamblia Not Detected (NOT DETECT); Norovirus GI/GII Not Detected (NOT DETECT); Plesiomonas Shigelloides Not Detected (NOT DETECT); Rotavirus A Not Detected (NOT DETECT); Salmonella Sp Not Detected (NOT DETECT); Sapovirus Not Detected (NOT DETECT); Shiga Toxin-prod E. coli-STEC Not Detected (NOT DETECT); Shigella/Enteroin E. coli-EIEC Not Detected (NOT DETECT); Vibrio Cholerae Not Detected (NOT DETECT); Vibrio Sp Not Detected (NOT DETECT); Yersinia Enterocolitica Not Detected (NOT DETECT)
--- NOTE | 2019-07-11 05:08 | NUR ---
SHIFT SUMMARY- PT. RESTED WELL DURING MOST OF THE NIGHT. WOKE UP WITH N/V EARLY AM 1X. MEDICATED W/PHENERGAN PER EMAR. NOTED GOOD RELIEF. PT. ABLE TO FALL BACK ASLEEP. STOOL FOR C-DIFF NEG. PT. CONTS TO HAVE LOOSE STOOLS. PT. NPO PENDING GI EVAL. NO C/O PAIN AND DENIED ANY OTHER NEEDS T/O THE SHIFT. CALL LIGHT WITHIN REACH AND SIDE RAILS UP X2. WILL CONT TO MONITOR.
[2019-07-11 09:15] LABS: BASOPHILS ABSOLUTE AUTO 0.03 K/mm3 (0.00-0.23); BASOPHILS PERCENT AUTO 0 % (0-2); EOSINOPHILS ABSOLUTE AUTO 0.01 K/mm3 (0.00-0.68); EOSINOPHILS PERCENT AUTO 0 % (0-6); Hematocrit 37.5 % (33.0-51.0); Hemoglobin 12.2 g/dL (11.5-16.0); IMMATURE GRAN ABSOLUTE AUTO 0.12 K/mm3 (0.00-0.10); IMMATURE GRAN PERCENT AUTO 2 % (0-1); LYMPHOCYTES ABSOLUTE AUTO 1.46 K/mm3 (0.84-5.20); LYMPHOCYTES PERCENT AUTO 19 % (21-46); MONOCYTES ABSOLUTE AUTO 0.64 K/mm3 (0.16-1.47); MONOCYTES PERCENT AUTO 8 % (4-13); Mean Corpuscular HGB Conc 32.5 g/dL (31.5-36.5); Mean Platelet Volume 9.1 fL (9.1-12.4); NEUTROPHILS ABSOLUTE AUTO 5.42 K/mm3 (1.96-9.15); NEUTROPHILS PERCENT AUTO 71 % (41-73); Platelet Count 309 K/mm3 (150-400); RDW Coefficient Variation 12.3 % (11.7-14.2); RDW Standard Deviation 43.2 fL (35.1-46.3); Red Blood Cell Count 3.94 M/mm3 (3.80-5.20); White Blood Cell Count 7.68 K/mm3 (4.00-11.30)
[2019-07-11 09:17] LABS: Mean Corpuscular Volume 95 fL (80-100)
[2019-07-11 09:38] LABS: Alanine Aminotransfer (ALT/SGP 50 U/L (12-78); Albumin, Blood 2.2 g/dL (3.4-5.0); Albumin/Globulin Ratio 0.7 (0.8-1.8); Alk Phos 51 U/L (50-136); Anion Gap 10 mmol/L (6-16); Aspartate Aminotrans (AST/SGOT 84 U/L (12-37); Bilirubin, Total 0.4 mg/dL (0.1-1.0); Blood Urea Nitrogen 18 mg/dL (8-24); Bun/Creatinine Ratio 22.8 (12.0-20.0); CO2, Blood 24 mmol/L (21-32); Chloride, Blood 105 mmol/L (98-108); Creatinine, Blood 0.79 mg/dL (0.40-1.00); Globulin, Blood 3.3 g/dL (2.2-4.0); Glomerular Filtration Rate >60 (60-); Glucose, Blood 81 mg/dL (70-99); Potassium, Blood 3.3 mmol/L (3.5-5.5); Sodium, Blood 139 mmol/L (136-145); Total Protein, Blood 5.5 g/dL (6.4-8.2)
--- NOTE | 2019-07-11 11:59 | NUR ---
PT INTO SDS VIA BED. History, Chart, Medications and Allergies reviewed before start of procedure.Patient confirms NPO status and agrees with scheduled surgery.
--- NOTE | 2019-07-11 12:02 | NUR ---
07/11/19 1202 Reyes Ho History, Chart, Medications and Allergies reviewed before start of procedure.MONITOR INTACT WITH CONTINUOUS PULSE OXIMETRY AND INTERMITTENT BP.3-LEAD EKG REVIEWED WITH PHYSICIAN PRIOR TO START OF PROCEDURE.O2 VIA N/C INTACT THROUGHOUT SEDATION/PROCEDURE. Patient confirms NPO status and agrees with scheduled surgery.See Anesthesia record.
--- NOTE | 2019-07-11 12:06 | NUR ---
PT TO DAY SURGERY FOR EGD.
--- NOTE | 2019-07-11 12:54 | NUR ---
PT BACK FROM DAY SURGERY FROM EGD. PT SLEEPY BUT AWAKENS TO VERBAL STIMULI. PT WITH NGT IN RIGHT NARE HOOKED UP TO LOW INTERMITTENT SUCTION DRAINING DARK GREEN. PT DENIES ANY COMPLAINTS AT THIS TIME. DR AKERS IN TO SEE PT AND REPORTS IF PT TOLERATING NGT BY THIS EVENING OK TO CLAMP NGT AND TRIAL CLEAR LIQUIDS. VSS.
--- NOTE | 2019-07-11 13:17 | NUR ---
PT TO IMAGING FOR XRAY.
--- NOTE | 2019-07-11 16:56 | NUR ---
SHIFT SUMMARY- PT A/OX4, INDEP TO BATHROOM. PT WITH INTERMITTENT N/V THIS AM. PT DOWN FOR AN EGD WHERE THEY PLACED AN NGT THAT IS HOOKED UP TO LOW INTERMITTENT SUCTION DRAINING GREEN OUTPUT. LS DECREASED IN THE BASES, ON RA. MOIST OCC PRODUCTIVE COUGH. PT REMAINS NPO AND ON IVF, KRIDER GIVEN. PT REPORTS IMPROVED NAUSEA AFTER NGT PLACEMENT AND HAS NOT REQUIRED ANY PRN MEDS. WILL ATTEMPT TO CLAMP THIS EVENING AND TRIAL CLEAR LIQUIDS PER DR AKERS. NO OTHER ACUTE CHANGES THIS SHIFT.
--- NOTE | 2019-07-11 18:13 | NUR ---
NGT CLAMPED AT THIS TIME, PT TRIALING ICE CHIPS. WILL CONT TO MONITOR.
--- NOTE | 2019-07-11 18:42 | NUR ---
PT REPORTED FEELING BLOATED AND NAUSEA AFTER CLAMPING NGT AND STARTING ON ICE CHIPS. PT REQUESTING NAUSEA MEDS. MEDS GIVEN AND HOOKED BACK UP TO SUCTION.
[2019-07-12 05:02] LABS: Anion Gap 11 mmol/L (6-16); Blood Urea Nitrogen 11 mg/dL (8-24); Bun/Creatinine Ratio 15.7 (12.0-20.0); CO2, Blood 25 mmol/L (21-32); Calcium, Blood 7.8 mg/dL (8.5-10.1); Chloride, Blood 102 mmol/L (98-108); Glomerular Filtration Rate >60 (60-); Glucose, Blood 79 mg/dL (70-99); Potassium, Blood 3.5 mmol/L (3.5-5.5); Sodium, Blood 138 mmol/L (136-145)
--- NOTE | 2019-07-12 06:27 | NUR ---
SHIFT SUMMARY- NO ACUTE EVENTS OVERNIGHT. PT. ASLEEP T/O THE SHIFT, NO APPARENT DISTRESS NOTED. NGT TO LOW INTERMITTENT SUCTION. PT. TOLERTING WELL. NO C/O OF N/V. CALL LIGHT WITHIN REACH AND SIDE RAILS UP X2. WILL CONT TO MONITOR.
--- NOTE | 2019-07-12 10:10 | NUR ---
NGT CLAMPED AT THIS TIME, PT TRIALING ICE CHIPS AND SIPS OF WATER.
--- NOTE | 2019-07-12 15:36 | NUR ---
PT ONLY ABLE TO TOLERATE APROX 2 HRS OF NGT CLAMPED THIS AM BEFORE BECOMGING NAUSEATED AND UNABLE TO TOLERATE IT. PT HOOKED BACK UP TO SUCTION AT THAT TIME AND PHENERGAN GIVEN. PT UP IN ROOM WALKING SHORT DISTANCES. UP TO RECLINER AT THIS TIME.
--- NOTE | 2019-07-12 18:03 | NUR ---
SHIFT SUMMARY- PT A/OX4, SBA UP TO BSC AND CHAIR. PT WITH NGT IN PLACE AT LOW INTERMITTENT SUCTION, PT ABLE TOLERATE APROX 2 HRS WITH NGT CLAMPED THIS AM AND THEN REPORTED INCREAED NAUSEA AND UPPER ABD BLOATING. BOWEL TONES PRESENT. NGT HAS PUT OUT APROX 1100ML GREEN OUTPUT. PHENERGAN GIVEN TWICE, PT REPORTS INCRESAED UPPER ABD TENDERNESS 4/10 AND NAUSEA THIS EVENING AND ZOFRAN GIVEN. PT UP TO BSC AND CHAIR BUT APPEARS MUCH WEAKER TODAY. KRIDER AND MAG RIDER GIVEN. PT STARTED ON PPN THIS EVENING. LS CLEAR/ DIMINISHED, ON RA. OCC PRODUCTIVE COUGH. NO OTHER ACUTE CHANGES THIS SHIFT.
--- NOTE | 2019-07-13 01:10 | NUR ---
increase in abd pain. fentanyl ordered. pain reduced. pt abd distension notably increased since begining of shift. pt ng tube draining green/ brown fluid. pt nausea increased tongiht as well.
--- NOTE | 2019-07-13 04:13 | NUR ---
SHIFT SUMMARY PT HAD NO COMPLAINTS AT BEGINNING OF SHIFT. PT COMPLAINED OF INCREASED NAUSEA WITH SOME DRY HEAVING. PT FOUND WITH ABD MORE DISTENDED AND PAINFUL. NG TUBE DRAINING WELL. PAIN MED ORDERED FROM PROVIDER. PT REPORTS RELIEF WITH PAIN MED. PT ASSESSED LATER WITH REDUCTION IN ABD DISTENSION. PT CONTINUES TO HAVE ABD DISCOMFORT HOSPITALIST BEING CALLED FOR ADDITIONAL PAIN MED. PT CURRENTLY AWAKE IN NO DISTRESS. CALL LIGHT IN REACH.
[2019-07-13 05:36] LABS: Magnesium, Blood 1.6 mg/dL (1.6-2.4)
[2019-07-13 05:38] LABS: Anion Gap 6 mmol/L (6-16); Blood Urea Nitrogen 12 mg/dL (8-24); Bun/Creatinine Ratio 19.7 (12.0-20.0); CO2, Blood 28 mmol/L (21-32); Calcium, Blood 7.9 mg/dL (8.5-10.1); Chloride, Blood 101 mmol/L (98-108); Creatinine, Blood 0.61 mg/dL (0.40-1.00); Glomerular Filtration Rate >60 (60-); Glucose, Blood 155 mg/dL (70-99); Phosphorus, Blood 2.7 mg/dL (2.5-4.9); Potassium, Blood 3.6 mmol/L (3.5-5.5); Sodium, Blood 135 mmol/L (136-145); Triglycerides 85 mg/dL (30-160)
--- NOTE | 2019-07-13 05:52 | NUR ---
PT HAS NOT VOIDED. BLADDER SCANNED , 525 ML NOTED. WILL CTM AND PASS ON TO DAY SHIFT.
--- NOTE | 2019-07-13 10:56 | NUR ---
PAIN MEDS ORDERED DILADID MADE PT "woosy" DR. LEDEZMA NOTIFIED. FENTANYL 12.5 ORDERED FOR PAIN. CLARIFIED WITH THAT PT SHOULD BE NPO.
--- NOTE | 2019-07-13 16:51 | NUR ---
SHIFT SUMMARY PT CURRENTLY CLAMPED FOR CT CONTRAST INTAKE. PT ON LOW INTERMITTEN SUCTION MOST THE DAY. TOLERATED WELL. PT UP TO CHAIR & SLEPT MOST THE SHIFT. PAIN MEDS GIVEN ONCE. ABD XRAY COMPLETED. CT TO BE COMPLETED AT 1930. NO OTHER CHANGES IN ASSESSMENT AT THIS TIME. WILL CONTINUE TO MONITOR UNTIL TURNOVER IS COMPLETE.
--- NOTE | 2019-07-13 19:58 | NUR ---
PT BACK FROM CT SCAN. TOLERATED WELL. PLACED BACK ON LOW INT SUCTION.
--- NOTE | 2019-07-14 05:15 | NUR ---
IMPLEMENTATION CONSULTANT SUMMARY PT AAOX4 AND PLEASANT. 1 ASSIST TO BATHROOM. PT TAKEN FOR ABD CT AT START OF SHIFT. CONTRAST DRINK GIVEN THROUGH NG TUBE THROUGHOUT THE DAY AND FINAL 200 ML GIVEN JUST BEFORE THE CT. ONCE PT RETURNED SHE WAS HOOKED BACK UP TO LOW INTERMITTENT SUCTION. CANISTER CHANGED WITH 800 ML OF STOMACH CONTENTS IN IT, THE MAJORITY OF THE FLUID WAS FAIRLY CLEAR AND MAY HAVE BEEN THE REMAINDER OF THE CONTRAST DRINK. SINCE CANISTER SWITCHED THERE HAS BEEN MINIMAL DRAINAGE FROM NG TUBE. PT REPORTS NAUSEA IMPROVED AND HAS HAD NO EMESIS THIS SHIFT. GIVEN FENTANYL 12.5 MCG IV X1 TONIGHT FOR SOME ABD DISCOMFORT. PT REPORTED GOOD PAIN RELIEF AND WAS ABLE TO SLEEP. REMAINS ON PPN WHILE NPO. VSS, WILL CONTINUE TO MONITOR.
[2019-07-14 05:26] LABS: BASOPHILS ABSOLUTE AUTO 0.05 K/mm3 (0.00-0.23); BASOPHILS PERCENT AUTO 0 % (0-2); EOSINOPHILS ABSOLUTE AUTO 0.04 K/mm3 (0.00-0.68); EOSINOPHILS PERCENT AUTO 0 % (0-6); Hematocrit 36.1 % (33.0-51.0); IMMATURE GRAN ABSOLUTE AUTO 0.35 K/mm3 (0.00-0.10); IMMATURE GRAN PERCENT AUTO 3 % (0-1); LYMPHOCYTES ABSOLUTE AUTO 1.36 K/mm3 (0.84-5.20); LYMPHOCYTES PERCENT AUTO 10 % (21-46); MONOCYTES ABSOLUTE AUTO 1.02 K/mm3 (0.16-1.47); MONOCYTES PERCENT AUTO 7 % (4-13); Mean Corpuscular HGB Conc 33.2 g/dL (31.5-36.5); Mean Corpuscular Volume 93 fL (80-100); Mean Platelet Volume 10.3 fL (9.1-12.4); NEUTROPHILS ABSOLUTE AUTO 11.22 K/mm3 (1.96-9.15); NEUTROPHILS PERCENT AUTO 80 % (41-73); Platelet Count 304 K/mm3 (150-400); RDW Coefficient Variation 12.6 % (11.7-14.2); RDW Standard Deviation 42.6 fL (35.1-46.3); Red Blood Cell Count 3.87 M/mm3 (3.80-5.20); White Blood Cell Count 14.04 K/mm3 (4.00-11.30)
[2019-07-14 05:54] LABS: Anion Gap 5 mmol/L (6-16); Blood Urea Nitrogen 14 mg/dL (8-24); Bun/Creatinine Ratio 20.9 (12.0-20.0); CO2, Blood 31 mmol/L (21-32); Calcium, Blood 7.8 mg/dL (8.5-10.1); Chloride, Blood 96 mmol/L (98-108); Creatinine, Blood 0.67 mg/dL (0.40-1.00); Glomerular Filtration Rate >60 (60-); Glucose, Blood 121 mg/dL (70-99); Magnesium, Blood 1.6 mg/dL (1.6-2.4); Phosphorus, Blood 3.1 mg/dL (2.5-4.9); Potassium, Blood 3.8 mmol/L (3.5-5.5); Sodium, Blood 132 mmol/L (136-145)
--- NOTE | 2019-07-14 12:59 | NUR ---
Patient is sitting up in bed and alert. Patient tells me that it has been very rough for her in that she thinks she is getting a little better and then she will feel worse again. Patient tells me about the tests and x-rays and that she is waiting for results. Patient shares about how she has a good support system but that she has asked most of them not to visit because she doesn't want anyone to get what she has. I provide prayer, emotional support and a calming presence. Patient responds well and is very thankful for the prayer. I will continue to remain available to patient and family.
--- NOTE | 2019-07-14 13:03 | NUR ---
PT TAKEN FOR SURGERY-LATE ENTRY FOR 1230. PT TAKEN FOR SURGERY. GRANDDAUGHTER PAIFE NOTIFIED.
--- NOTE | 2019-07-14 13:07 | NUR ---
Surgical site prepped with 2% Chlorhexidine cloth wipe. History, Chart, Medications and Allergies reviewed before start of procedure. Patient confirms NPO status and agrees with scheduled surgery. Pre-Op teaching done. Pt verbalizes understanding. Lung sounds with crackles t/o.
--- NOTE | 2019-07-14 14:37 | NUR ---
REPORT GIVEN TO ICU NURSE REPORT GIVEN TO HUGO IN ICU. PT BELONGINGS SENT TO ICU 13.
--- NOTE | 2019-07-14 15:40 | NUR ---
PT GRANDDAUGHTER UPDATED ON NEW ROOM ASSIGNMENT.
--- NOTE | 2019-07-14 16:38 | NUR ---
PATIENT ARRIVED TO ROOM ICU 13 FROM OR AFTER RECEIVING REPORT FROM BG ABDULLAHI, PATIENT ARRIVED VIA HOSPITAL BED, PATIENT DROWSY AND PAINFUL, AFEBRILE, ALERT AND ORIENTED, LUNGS SOUNDS ARE COARSE BILATERAL, PLACED ON MONITOR, ST WITH HR AT 120'S, SBP IN 130'S TO 150'S, PATIENT C/O CONTINUOUS PAIN AT ABDOMINAL INCISION, WHICH IS COVERED WITH DRESSING AND HAS WOUND VAC IN PLACE, ABDOMINAL BINDER ALSO IN PLACE BUT PATIENT REFUSED TO HAVE BINDER PLACED, SHE STATED "IT HURTS MORE", WITT CATHETER IN PLACE AND DRAINING YELLOW URINE, SKIN OVERALL C/D/I EXCEPT FOR MID ABDOMINAL INCISION, POWERGLIDE IN ISIDRO HAD LR INFUSING, WAS CHANGED TO ORDERED PPN, NEEDS SECOND PIV PLACED D/T ORDERED ANTIBIOTICS AND IV, PATIENT'S VSS, HOWEVER, PATIENT IS IN EXCRUCIATING PAIN, UNABLE TO GIVE MORE FENTANYL AT THIS TIME, PATIENT RECEIVED TOTAL OF 300 MCG OF FENTANYL IN OR WELL 1 MG OF DILAUDID, PATIENT IS POSITIONED WITH FLEXED HIPS TO REDUCE STRESS ON ABDOMINAL MUSCLES, PATIENT'S GRANDDAUGHTER AT BEDSIDE, BOTH WERE ORIENTED TO ROOM AND NEW ENVIRONMENT, CALL LIGHT IN REACH, WILL CONTINUE TO MONITOR.
--- NOTE | 2019-07-14 19:10 | NUR ---
ASSUMED CARE OF PT, SHE IS RESTING QUIETLY RECLINING IN BED, AROUSES TO VERBAL STIMULI, DENIES CURRENT PAIN, DENIES N/V, DENIES CP/PRESSURE, DENIES SOB/DYSPNEA. COARSE COUGH IS NOTED, PT EXPRESSION REMAINS RELAXED THROUGH COUGH WITHOUT GRIMACING OR ABD SPLINTING NOTED. SHE IS SPEAKING IN FULL SENTENCES, SATS ARE HIGH 90S WITH OXYGEN AT 2 L/MIN VIA NASAL CANNULA, NO INCREASED WORK OF BREATHING IS NOTED AT THIS TIME, LUNGS WITH COARSE BASES BILAT AND DIM. HRR, SINUS NOTED ON MONITOR, RATE 80-90S AT THIS TIME, PRESSURES ARE IMPROVED PER DAY SHIFT RN, CURRENTLY 103/60, SKIN IS PALE AND COOL HOWEVER TEMP IS 98.1 AT THIS TIME, PULSES FULL X 4 EXTREMITIES, NO EDEMA IS NOTED AT THIS TIME. ABD DISTENDED, HYPOACTIVE BOWEL TONES ARE NOTED, NO GRIMACING/GUARDING WITH LIGHT PALLPATION, NG IS NOTED TO RIGHT NARE, CLEAR GREEN/BROWN FLUID IS NOTED IN TUBING AT THIS TIME, INCISION TO ABD MIDLINE WITH WOUND VAC IN PLACE, DRESSING IS CDI AT THIS TIME. WITT CATH IN PLACE DRAINING CLEAR YELLOW URINE TO GRAVITY. WILL PROVIDE IS AND INSTRUCT ON USE, WILL PROVIDE FOLDED BATH BLANKET FOR ABD SPLINTING WITH COUGH AND INSTRUCT ON USE, WILL DISCUSS TCDB.
[2019-07-15 05:07] LABS: Hemoglobin 11.5 g/dL (11.5-16.0); Mean Corpuscular HGB 31.3 pg (26.0-34.0); Mean Corpuscular HGB Conc 32.9 g/dL (31.5-36.5); Mean Corpuscular Volume 95 fL (80-100); Mean Platelet Volume 9.5 fL (9.1-12.4); Platelet Count 283 K/mm3 (150-400); RDW Coefficient Variation 12.4 % (11.7-14.2); RDW Standard Deviation 43.8 fL (35.1-46.3); Red Blood Cell Count 3.68 M/mm3 (3.80-5.20); White Blood Cell Count 12.83 K/mm3 (4.00-11.30)
[2019-07-15 05:28] LABS: BAND PERCENT MAN 1 % (0-8); BASOPHILS ABSOLUTE MAN 0.12 K/mm3 (0.00-0.23); BASOPHILS PERCENT MAN 1 % (0-2); EOSINOPHILS PERCENT MAN 0 % (0-6); LYMPHOCYTES ABSOLUTE MAN 0.51 K/mm3 (0.84-5.20); LYMPHOCYTES PERCENT MAN 4 % (21-46); MONOCYTES ABSOLUTE MAN 1.15 K/mm3 (0.16-1.47); MONOCYTES PERCENT MAN 9 % (4-13); NEUTROPHILS ABSOLUTE MAN 11.03 K/mm3 (1.96-9.15); SEG NEUTROPHILS PERCENT MAN 85 % (41-73); TOTAL CELLS COUNTED 100
[2019-07-15 05:40] LABS: Alanine Aminotransfer (ALT/SGP 20 U/L (12-78); Albumin, Blood 1.5 g/dL (3.4-5.0); Albumin/Globulin Ratio 0.5 (0.8-1.8); Alk Phos 38 U/L (50-136); Anion Gap 4 mmol/L (6-16); Aspartate Aminotrans (AST/SGOT 29 U/L (12-37); Bilirubin, Total 0.3 mg/dL (0.1-1.0); Blood Urea Nitrogen 14 mg/dL (8-24); Bun/Creatinine Ratio 20.1 (12.0-20.0); CO2, Blood 28 mmol/L (21-32); Calcium, Blood 7.4 mg/dL (8.5-10.1); Chloride, Blood 102 mmol/L (98-108); Globulin, Blood 3.2 g/dL (2.2-4.0); Glomerular Filtration Rate >60 (60-); Glucose, Blood 156 mg/dL (70-99); Magnesium, Blood 1.6 mg/dL (1.6-2.4); Phosphorus, Blood 3.7 mg/dL (2.5-4.9); Potassium, Blood 4.7 mmol/L (3.5-5.5); Sodium, Blood 134 mmol/L (136-145); Total Protein, Blood 4.7 g/dL (6.4-8.2)
--- NOTE | 2019-07-15 06:55 | NUR ---
PT RESTS QUIETLY THROUGHOUT SHIFT AND RATES PAIN WELL CONTROLLED ALL THROUGH NOC. SHE DENIES N/V THROUGHOUT SHIFT, DENIES CP/PRESSURE, DENIES SOB/DYSPNEA, STATES THAT COMPARED TO THE LAST FEW DAYS SHE FEELS GOOD. LUNGS CONT COARSE BILAT BASES HOWEVER IMPROVE FOLLOWING COUGH, SPLINTING ABD INCISION HAS BEEN REINFORCED THROUGHOUT SHIFT, PT DOES VERBALIZE UNDERSTANDING HOWEVER CONTINUED REINFORCEMENT HAS BEEN NECESSARY. ABD REMAINS SOFT, HYPOACTIVE BOWEL TONES CONTINUE, SCANT OUTPUT FROM NG TUBE IN TUBING. INCISION REMAINS DRY AND INTACT, SCANT AMOUNT OF DARK RED DRAINAGE NOTED NEAR SUPERIOR ASPECT OF DRESSING. PT DOES REPOSITION SELF, NOTED FOLLOWING TURN TO RIGHT PT REPOSITIONED SELF SUPINE AFTER APPROX 1.5 HOURS.
--- NOTE | 2019-07-15 07:15 | NUR ---
START OF SHIFT NOTE: RECEIVED REPORT FROM SUSAN GROVES, RN, ASSUMED CARE, PATIENT IS AWAKE, ALERT AND ORIENTED, STATES PAIN LEVEL AT 3-4 AT THIS TIME, RECEIVED TORADOL EARLIER THIS AM, AFEBRILE, NG TUBE IN PLACE ON LIS, SCANT AMOUNT OF BROWNISH FLUID DRAINING, DENIES NAUSEA, LUNG SOUNDS ARE DIMINISHED, HR 100'S, SBP'S 120'S, ST, 2L NC SATING AT 100 %, MIDABDOMINAL INCISION, DRESSING SHOWING SMALL AMOUNT OF RED DRNG., CIRCLED, WOUND VAC IN PLACE, PATIENT BRACING SELF DURING COUGHIG SPELLS, LEGS SLIGHTLY FLEXED TO DECREASE TENSION ON ABDOMEN, WITT CATHETER IN PLACE, DRAINING YELLOW URINE, PEDAL PULSES PALPABLE, CALL LIGHT IN REACH, WILL CONTINUE TO MONITOR.
--- NOTE | 2019-07-15 08:08 | NUR ---
DR. HAWKTRATE IN TO SEE PATIENT, NO NEW ORDERS RECEIVED.
--- NOTE | 2019-07-15 09:23 | NUR ---
DR. AKERS IN TO SEE PATIENT, PATIENT ASLEEP, THIS RN UPDATED DR. AKERS ON PATIENT CONDITION, PATIENT CONTINUES TO REST COMFORTABLY, RECEIVED BED BATH, DAUGHTER AT BEDSIDE, CALL LIGHT IN REACH, WILL CONTINUE TO MONITOR.
--- NOTE | 2019-07-15 10:35 | NUR ---
PATIENT CONTINUES TO REST COMFORTABLY, REPORTS PAIN AT 3-4, BUT REFUSES PAIN MEDICATION AT THIS TIME, CALL LIGHT IN REACH, WILL CONTINUE TO MONITOR.
--- NOTE | 2019-07-15 13:05 | NUR ---
NG TUBE REMOVED PER DR. ONEILL, PATIENT TOLERATED WELL, ALSO RECEIVED 15 MG/1 ML DOSE OF TORADOL FOR PAIN CONTROL, PATIENT RESTING COMFORTABLY AT THIS TIME, CALL LIGHT IN REACH, WILL CONTINUE TO MONITOR.
--- NOTE | 2019-07-15 13:19 | NUR ---
REPORT CALLED TO BG MATHEWS, ON SURGICAL FLOOR, PATIENT WILL BE MOVED TO ROOM 224 VIA HOSPITAL BED, WITH ALL MEDICATIONS AND BELONGINGS.
--- NOTE | 2019-07-15 16:25 | NUR ---
SHIFT SUMMARY NO ACUTE CHANGES SINCE TRANSFER TO UNIT. PT REPORTS PAIN TOLERABLE AND DENIES NEED FOR PAIN MEDICATIONS. SLOWLY LUCIANA ICE CHIPS. PPN INFUSING PER ORDERS. WITT PATENT WITH YELLOW URINE. AWILDA MIDLINE TO ABD REMAINS DRY AND INTACT. PT DENIES PASSING GAS YET. CALL LIGHT WITHIN REACH.
--- NOTE | 2019-07-16 05:17 | NUR ---
Shift Summary. At the beginning of the shift it was noted that her Lt arm distal to the powerglide insertion site was mildly swollen. PPN infusing without pain or issue. This was unchanged to shift until am labs. unable to draw blood from powerglide @0500, and painful to flush. This power glide was removed and another is attempting to be placed now. patient stated that she had slept most of the night. no complaints of pain, nausea, or vomiting. no other acute changes through out the shift.
[2019-07-16 06:44] LABS: BASOPHILS ABSOLUTE AUTO 0.07 K/mm3 (0.00-0.23); BASOPHILS PERCENT AUTO 1 % (0-2); EOSINOPHILS ABSOLUTE AUTO 0.06 K/mm3 (0.00-0.68); EOSINOPHILS PERCENT AUTO 1 % (0-6); Hematocrit 33.2 % (33.0-51.0); Hemoglobin 10.8 g/dL (11.5-16.0); IMMATURE GRAN ABSOLUTE AUTO 0.56 K/mm3 (0.00-0.10); IMMATURE GRAN PERCENT AUTO 5 % (0-1); LYMPHOCYTES PERCENT AUTO 9 % (21-46); MONOCYTES ABSOLUTE AUTO 1.49 K/mm3 (0.16-1.47); MONOCYTES PERCENT AUTO 12 % (4-13); Mean Corpuscular HGB 30.6 pg (26.0-34.0); Mean Corpuscular HGB Conc 32.5 g/dL (31.5-36.5); Mean Corpuscular Volume 94 fL (80-100); Mean Platelet Volume 9.6 fL (9.1-12.4); NEUTROPHILS PERCENT AUTO 73 % (41-73); Platelet Count 321 K/mm3 (150-400); RDW Coefficient Variation 12.8 % (11.7-14.2); Red Blood Cell Count 3.53 M/mm3 (3.80-5.20); White Blood Cell Count 11.98 K/mm3 (4.00-11.30)
[2019-07-16 07:03] LABS: Alanine Aminotransfer (ALT/SGP 26 U/L (12-78); Albumin, Blood 1.9 g/dL (3.4-5.0); Albumin/Globulin Ratio 0.6 (0.8-1.8); Alk Phos 41 U/L (50-136); Anion Gap 6 mmol/L (6-16); Aspartate Aminotrans (AST/SGOT 39 U/L (12-37); Bilirubin, Total 0.4 mg/dL (0.1-1.0); Blood Urea Nitrogen 16 mg/dL (8-24); Bun/Creatinine Ratio 22.3 (12.0-20.0); CO2, Blood 30 mmol/L (21-32); Calcium, Blood 7.7 mg/dL (8.5-10.1); Chloride, Blood 101 mmol/L (98-108); Creatinine, Blood 0.72 mg/dL (0.40-1.00); Globulin, Blood 3.2 g/dL (2.2-4.0); Glomerular Filtration Rate >60 (60-); Glucose, Blood 99 mg/dL (70-99); Magnesium, Blood 1.6 mg/dL (1.6-2.4); Phosphorus, Blood 2.9 mg/dL (2.5-4.9); Potassium, Blood 4.3 mmol/L (3.5-5.5); Sodium, Blood 137 mmol/L (136-145); Total Protein, Blood 5.1 g/dL (6.4-8.2)
--- NOTE | 2019-07-16 09:06 | NUR ---
DR AKERS BEEN TO SEE PT. DISCUSSED PT'S STATUS WITH DR LEDEZMA INCLUDING THAT PT DOES NOT HAVE IV ACCESS AT THIS TIME.
--- NOTE | 2019-07-16 13:20 | NUR ---
PT ASSISTED TO CHAIR WITH SBA. PT TOLERATED WELL.
--- NOTE | 2019-07-16 14:07 | NUR ---
DR ONEILL BEEN HERE, REPORTS PT MAY HAVE C.L. DIET. ISTRATE REPORTED THAT HE WOULD CHANGE ABX TO PO AND THAT IF PT TOLERATES C.L. DIET MAY LEAVE IV OUT. DR ONEILL AGREES.
--- NOTE | 2019-07-16 17:38 | NUR ---
DR HAWKTRATE REPORTS TO LEAVE WITT IN PLACE AT THIS TIME FOR STRICT I/O PT RECENTLY STARTED TAKING IN ORAL FLUIDS.
--- NOTE | 2019-07-16 17:38 | NUR ---
SHIFT SUMMARY: PT BEEN SLEEPING THIS AFTERNOON AFTER GETTING BACK IN BED AFTER SITTING UP IN CHAIR FOR SHORT AMT OF TIME. PT DENIES ANY LIGHTHEADEDNESS AT THIS TIME. PT REPORTS DRINKING SMALL AMTS. ENC ENSURE. PT VSS. PT USING CALL LIGHT APPR. PT BEEN ASSISTED WITH ADL'S PRN.
--- NOTE | 2019-07-17 04:22 | NUR ---
@1915 REPOST FROM DAY SHIFT NURSE STATED THAT THE POWERGLIDE WAS NOT REPLACED AND THAT THERE WAS A VERBAL ORDER TO LEAVE THE IV OUT IF THE PT WAS TAKING PO FLUIDS WELL. THE PATIENT IS LIKELY TO BE HERE FOR THE NEXT 2-3 DAYS. I SPOKE TO THE PAIENT AND SHE DECIDED THAT SHE WOULD BE OK WITH HAVING A NURSE PLACE A POWERGLIDE TONIGHT. @2029 ROXANNE RN WAS ABLE TO PLACE A 20G POWERGLIDE. sHIFT SUMMARY PATIENT DID RECIEVE IV PAIN MEDICATION X1 LAST NIGHT. SHE IS EASILY AROUSABLE FOR CARE. SHE DID NOT WEAR HER ABD BINDER LAST NIGHT, HER AWILDA DRESSING IS COMPRESSED WITH NO NEW BLOOD. SHSE CONTINUES TO HAVE PITTING EDEMA AT HER HIPS. NO ACUTE CHANGES.
[2019-07-17 05:57] LABS: Hematocrit 30.5 % (33.0-51.0); Hemoglobin 9.7 g/dL (11.5-16.0); Mean Corpuscular HGB 30.4 pg (26.0-34.0); Mean Corpuscular HGB Conc 31.8 g/dL (31.5-36.5); Mean Corpuscular Volume 96 fL (80-100); Mean Platelet Volume 10.2 fL (9.1-12.4); Platelet Count 315 K/mm3 (150-400); RDW Coefficient Variation 12.9 % (11.7-14.2); Red Blood Cell Count 3.19 M/mm3 (3.80-5.20); White Blood Cell Count 10.09 K/mm3 (4.00-11.30)
[2019-07-17 06:16] LABS: Alanine Aminotransfer (ALT/SGP 30 U/L (12-78); Albumin, Blood 1.7 g/dL (3.4-5.0); Albumin/Globulin Ratio 0.5 (0.8-1.8); Alk Phos 48 U/L (50-136); Anion Gap 7 mmol/L (6-16); Aspartate Aminotrans (AST/SGOT 39 U/L (12-37); Bilirubin, Total 0.6 mg/dL (0.1-1.0); Blood Urea Nitrogen 18 mg/dL (8-24); Bun/Creatinine Ratio 21.1 (12.0-20.0); CO2, Blood 28 mmol/L (21-32); Calcium, Blood 7.5 mg/dL (8.5-10.1); Chloride, Blood 101 mmol/L (98-108); Creatinine, Blood 0.85 mg/dL (0.40-1.00); Globulin, Blood 3.1 g/dL (2.2-4.0); Glomerular Filtration Rate >60 (60-); Glucose, Blood 84 mg/dL (70-99); Magnesium, Blood 1.5 mg/dL (1.6-2.4); Phosphorus, Blood 3.6 mg/dL (2.5-4.9); Potassium, Blood 4.3 mmol/L (3.5-5.5); Sodium, Blood 136 mmol/L (136-145); Total Protein, Blood 4.8 g/dL (6.4-8.2)
[2019-07-17 06:29] LABS: BAND PERCENT MAN 3 % (0-8); BASOPHILS PERCENT MAN 0 % (0-2); EOSINOPHILS PERCENT MAN 2 % (0-6); LYMPHOCYTES PERCENT MAN 7 % (21-46); METAMYELOCYTE PERCENT MAN 3 % (0-0); MONOCYTES PERCENT MAN 11 % (4-13); NEUTROPHILS ABSOLUTE MAN 7.76 K/mm3 (1.96-9.15); SEG NEUTROPHILS PERCENT MAN 74 % (41-73); TOTAL CELLS COUNTED 100
--- NOTE | 2019-07-17 08:35 | NUR ---
OOB TO CHAIR W/ PHYS. TX THIS AM, TOLERATED FAIRLY WELL, PT FEELING WEAK AND NAUSEATED THIS AM, REPORTS NOT TOLERATING CLEAR LIQUIDS WELL, C/O SOB AFTER MOVING TO CHAIR, DENIES ANY NEED FOR NEB TX AT THIS TIME, MONITOR FOR ANY CHANGES, ASSIST PRN.
--- NOTE | 2019-07-17 14:24 | NUR ---
PT GAVE PERMISSION TO HELP WITH CARE ON 07/17/2019 FOR 07/18/2019.
--- NOTE | 2019-07-17 14:46 | NUR ---
07/17/19 1446 Steph Ta VERIFICATIONS, AUDITS.
--- NOTE | 2019-07-17 15:20 | NUR ---
REPORT GIVEN TO GARFIELD MESSINA RN TO ASSUME CARE OF PT.
--- NOTE | 2019-07-17 19:12 | NUR ---
SUMMARY SINCE ASSUMING CARE, PT HAS BEEN PLEASANT BUT TIRED. C/O ABD DISTENTION, TORADOL DIDN'T MANAGE PAIN BUT GOOD RESULTS FROM NORCO. BM x 1. TOLERATED FULL LQ DINNER WELL BUT DID C/O HEART BURN.
--- NOTE | 2019-07-18 04:28 | NUR ---
SHIFT SUMMARY POD 4 BOWEL RESECTION PT AAOX4. HR ELEVATED DURING SHIFT. PT RESTING IN BED, PPN INFUSING. REPORTS MINIMAL TENDERNESS ON ABDOMINAL PALPATION, REPORTS PASSING FLATUS. PICCO DRESSING INTACT, NO NEW DRAINAGE NOTED DURING SHIFT. GREEN LIGHT FLASHING LAST CHECKED. WITT PATENT AND DRAINING. PT REPORTS STILL FEELING WEAK. COUGH STILL PRODUCTIVE AND FREQUENT, ENCOURAGED SPLINTING ABDOMEN TO REDUCE PAIN.
[2019-07-18 04:55] LABS: BASOPHILS ABSOLUTE AUTO 0.04 K/mm3 (0.00-0.23); BASOPHILS PERCENT AUTO 1 % (0-2); EOSINOPHILS PERCENT AUTO 1 % (0-6); Hematocrit 28.2 % (33.0-51.0); Hemoglobin 9.1 g/dL (11.5-16.0); IMMATURE GRAN ABSOLUTE AUTO 0.53 K/mm3 (0.00-0.10); IMMATURE GRAN PERCENT AUTO 6 % (0-1); LYMPHOCYTES ABSOLUTE AUTO 0.83 K/mm3 (0.84-5.20); LYMPHOCYTES PERCENT AUTO 10 % (21-46); MONOCYTES ABSOLUTE AUTO 1.15 K/mm3 (0.16-1.47); MONOCYTES PERCENT AUTO 13 % (4-13); Mean Corpuscular HGB Conc 32.3 g/dL (31.5-36.5); Mean Corpuscular Volume 96 fL (80-100); Mean Platelet Volume 10.1 fL (9.1-12.4); NEUTROPHILS ABSOLUTE AUTO 5.96 K/mm3 (1.96-9.15); NEUTROPHILS PERCENT AUTO 69 % (41-73); Platelet Count 306 K/mm3 (150-400); RDW Coefficient Variation 12.7 % (11.7-14.2); RDW Standard Deviation 44.9 fL (35.1-46.3); Red Blood Cell Count 2.94 M/mm3 (3.80-5.20); White Blood Cell Count 8.61 K/mm3 (4.00-11.30)
[2019-07-18 05:15] LABS: Anion Gap 5 mmol/L (6-16); Blood Urea Nitrogen 22 mg/dL (8-24); Bun/Creatinine Ratio 25.6 (12.0-20.0); CO2, Blood 29 mmol/L (21-32); Calcium, Blood 7.8 mg/dL (8.5-10.1); Chloride, Blood 101 mmol/L (98-108); Creatinine, Blood 0.86 mg/dL (0.40-1.00); Glomerular Filtration Rate >60 (60-); Glucose, Blood 118 mg/dL (70-99); Potassium, Blood 4.3 mmol/L (3.5-5.5); Sodium, Blood 135 mmol/L (136-145); Triglycerides 88 mg/dL (30-160)
[2019-07-18 05:22] LABS: BAND PERCENT MAN 2 % (0-8); BASOPHILS ABSOLUTE MAN 0.08 K/mm3 (0.00-0.23); BASOPHILS PERCENT MAN 1 % (0-2); EOSINOPHILS ABSOLUTE MAN 0.08 K/mm3 (0.00-0.68); EOSINOPHILS PERCENT MAN 1 % (0-6); LYMPHOCYTES ABSOLUTE MAN 0.43 K/mm3 (0.84-5.20); LYMPHOCYTES PERCENT MAN 5 % (21-46); METAMYELOCYTE ABSOLUTE MAN 0.08 K/mm3 (0.00-0.00); METAMYELOCYTE PERCENT MAN 1 % (0-0); MONOCYTES ABSOLUTE MAN 1.29 K/mm3 (0.16-1.47); MONOCYTES PERCENT MAN 15 % (4-13); MYELOCYTE ABSOLUTE MAN 0.08 K/mm3 (0.00-0.00); MYELOCYTE PERCENT MAN 1 % (0-0); NEUTROPHILS ABSOLUTE MAN 6.45 K/mm3 (1.96-9.15); PROMYELOCYTE ABSOLUTE MAN 0.08 K/mm3 (0.00-0.00); PROMYELOCYTE PERCENT MAN 1 % (0-0); SEG NEUTROPHILS PERCENT MAN 73 % (41-73); TOTAL CELLS COUNTED 100
--- NOTE | 2019-07-18 10:44 | NUR ---
ATTEMPTED TO ASSIST PT TO AMBULATE BUT BECAME NAUSEAOUS AND WAS DRY HEAVING UPON STANDING, BP 129/73, HR 87, MEDICATED WITH ZOFRAN, ICE CHIPS GIVEN, PT CURRENTLY SITTING BACK ON CHAIR, CONT. TO MONITOR FOR ANY CHANGES.
--- NOTE | 2019-07-18 19:00 | NUR ---
SUMMARY NAUSEA SLIGHTLY BETTER THIS AM TODAY, BUT INCREASES WITH ACTIVITY, VSS, MEDICATED FOR ABD PAIN ONCE TODAY, DENIED ANY NEED FOR PAIN MEDS THE REST OF THE SHIFT, PT ABLE TO AMBULATE OUTSIDE OF ROOM THIS AFTERNOON W/ OT, TOLERATED FAIRLY WELL, WITT CATH DC'D TODAY, PT VOIDING W/ OCCASSIONAL INCONTINENCE, NEW DVT ON L ARM PER DR. LEDEZMA, PT TO START XARELTO TONIGHT, 1 PERSON ASSIST WITH GAIT BELT AND WALKER FOR WEAKNESS, CONT. TO HAVE MOIST NONPRODUCTIVE COUGH, NO ACUTE CHANGES THIS SHIFT.
--- NOTE | 2019-07-19 05:00 | NUR ---
SHIFT SUMMARY POD 5. AA0X4 VSS. PT HAVING LOOSE STOOLS. PT UP TO COMMODE 1 ASSIST FWW, GB. PPN INFUSING DURING NIGHT, PT REPORTS DECREASE IN WEAKNESS. MEDICATED FOR PAIN X1. PICCO DRESSING CHANGED, CDI. GREEN LIGHT INTACT. PT VOIDING IN COMMODE. LEFT ARM SWOLLEN, PT DENIES PAIN IN ARM.
[2019-07-19 05:04] LABS: BASOPHILS ABSOLUTE AUTO 0.07 K/mm3 (0.00-0.23); BASOPHILS PERCENT AUTO 1 % (0-2); EOSINOPHILS ABSOLUTE AUTO 0.11 K/mm3 (0.00-0.68); EOSINOPHILS PERCENT AUTO 1 % (0-6); Hematocrit 28.1 % (33.0-51.0); Hemoglobin 9.2 g/dL (11.5-16.0); IMMATURE GRAN ABSOLUTE AUTO 0.54 K/mm3 (0.00-0.10); IMMATURE GRAN PERCENT AUTO 5 % (0-1); LYMPHOCYTES ABSOLUTE AUTO 0.85 K/mm3 (0.84-5.20); LYMPHOCYTES PERCENT AUTO 8 % (21-46); MONOCYTES ABSOLUTE AUTO 1.01 K/mm3 (0.16-1.47); MONOCYTES PERCENT AUTO 10 % (4-13); Mean Corpuscular HGB Conc 32.7 g/dL (31.5-36.5); Mean Corpuscular Volume 95 fL (80-100); Mean Platelet Volume 9.4 fL (9.1-12.4); NEUTROPHILS ABSOLUTE AUTO 8.03 K/mm3 (1.96-9.15); NEUTROPHILS PERCENT AUTO 76 % (41-73); Platelet Count 265 K/mm3 (150-400); RDW Coefficient Variation 12.9 % (11.7-14.2); RDW Standard Deviation 44.6 fL (35.1-46.3); Red Blood Cell Count 2.97 M/mm3 (3.80-5.20); White Blood Cell Count 10.61 K/mm3 (4.00-11.30)
[2019-07-19 05:28] LABS: Alanine Aminotransfer (ALT/SGP 25 U/L (12-78); Albumin, Blood 1.7 g/dL (3.4-5.0); Albumin/Globulin Ratio 0.5 (0.8-1.8); Alk Phos 51 U/L (50-136); Anion Gap 6 mmol/L (6-16); Aspartate Aminotrans (AST/SGOT 28 U/L (12-37); Bilirubin, Total 0.4 mg/dL (0.1-1.0); Blood Urea Nitrogen 17 mg/dL (8-24); CO2, Blood 28 mmol/L (21-32); Calcium, Blood 7.9 mg/dL (8.5-10.1); Chloride, Blood 101 mmol/L (98-108); Creatinine, Blood 0.81 mg/dL (0.40-1.00); Globulin, Blood 3.4 g/dL (2.2-4.0); Glomerular Filtration Rate >60 (60-); Glucose, Blood 116 mg/dL (70-99); Potassium, Blood 4.6 mmol/L (3.5-5.5); Sodium, Blood 135 mmol/L (136-145); Total Protein, Blood 5.1 g/dL (6.4-8.2)
[2019-07-19 06:21] LABS: BAND PERCENT MAN 2 % (0-8); BASOPHILS PERCENT MAN 0 % (0-2); EOSINOPHILS PERCENT MAN 0 % (0-6); LYMPHOCYTES ABSOLUTE MAN 0.95 K/mm3 (0.84-5.20); LYMPHOCYTES PERCENT MAN 9 % (21-46); MONOCYTES ABSOLUTE MAN 0.95 K/mm3 (0.16-1.47); MONOCYTES PERCENT MAN 9 % (4-13); SEG NEUTROPHILS PERCENT MAN 80 % (41-73); TOTAL CELLS COUNTED 100
--- NOTE | 2019-07-19 15:44 | NUR ---
Patient is lying in bed and alert. Patient immediately tells me that she is feeling better today for the first time since her stay in the hospital began. Patient states that she has some energy, she ate a bowl of Tomatoe soup, and that her electrical inspector from [facility] visited today. Patient is even joking around with me. I listen empathically and provide companionship and prayer. Patient responds well and shows signs of an elevated mood. I will continue to remain available to patient and family.
--- NOTE | 2019-07-19 16:58 | NUR ---
SHIFT SUMMARY PT A&OX4, VSS, POD5 SB RESECT, AWILDA IN PLACE W/SUCTION, PT REP VOIDING WELL, PASSING FLATUS+ AND 1 SOFT BM TODAY. PAIN MANAGED W/5 MG NORCO. PPN @ 105 MLS/HR INFUSING. XARELTO GIVEN FOR LUE DVT, AND NEWLY DISCOVERED RUE DVT. PT AMB W/FWW & GB DOWN [facility] AND TO BRP; SHOWERED TODAY; UP TO CHAIR FOR MEALS. LUCIANA PO, DENIES N&V AT THIS TIME; ZOFRAN GIVEN 1X. PT REPORTED/DEMONSTRATED TCDB AND USING I.S. T/O SHIFT. WILL REPORT TO ONCSORIN STRANGE RN.
[2019-07-20 04:43] LABS: BASOPHILS ABSOLUTE AUTO 0.06 K/mm3 (0.00-0.23); BASOPHILS PERCENT AUTO 1 % (0-2); EOSINOPHILS ABSOLUTE AUTO 0.17 K/mm3 (0.00-0.68); EOSINOPHILS PERCENT AUTO 2 % (0-6); Hematocrit 25.9 % (33.0-51.0); Hemoglobin 8.4 g/dL (11.5-16.0); IMMATURE GRAN PERCENT AUTO 4 % (0-1); LYMPHOCYTES ABSOLUTE AUTO 0.96 K/mm3 (0.84-5.20); LYMPHOCYTES PERCENT AUTO 10 % (21-46); MONOCYTES ABSOLUTE AUTO 0.82 K/mm3 (0.16-1.47); MONOCYTES PERCENT AUTO 8 % (4-13); Mean Corpuscular HGB 30.9 pg (26.0-34.0); Mean Corpuscular HGB Conc 32.4 g/dL (31.5-36.5); Mean Corpuscular Volume 95 fL (80-100); Mean Platelet Volume 9.5 fL (9.1-12.4); NEUTROPHILS ABSOLUTE AUTO 7.46 K/mm3 (1.96-9.15); NEUTROPHILS PERCENT AUTO 76 % (41-73); Platelet Count 262 K/mm3 (150-400); RDW Coefficient Variation 12.7 % (11.7-14.2); RDW Standard Deviation 44.5 fL (35.1-46.3); Red Blood Cell Count 2.72 M/mm3 (3.80-5.20); White Blood Cell Count 9.87 K/mm3 (4.00-11.30)
[2019-07-20 04:59] LABS: Anion Gap 5 mmol/L (6-16); Blood Urea Nitrogen 19 mg/dL (8-24); Bun/Creatinine Ratio 23.6 (12.0-20.0); CO2, Blood 28 mmol/L (21-32); Calcium, Blood 8.1 mg/dL (8.5-10.1); Chloride, Blood 103 mmol/L (98-108); Creatinine, Blood 0.81 mg/dL (0.40-1.00); Glomerular Filtration Rate >60 (60-); Glucose, Blood 107 mg/dL (70-99); Magnesium, Blood 1.8 mg/dL (1.6-2.4); Potassium, Blood 4.6 mmol/L (3.5-5.5); Sodium, Blood 136 mmol/L (136-145); Triglycerides 72 mg/dL (30-160)
--- NOTE | 2019-07-20 05:40 | NUR ---
SHIFT SUMMARY PT IS A/O X4 AND STANDBY ASSIST TO BATHROOM FOR HELP WITH IV LINES. PT REPORTS HAVING GAS AND BM'S AND IS VOIDING. TOLERATING DIET WELL. PT HAD SOME NAUSEA DURING THE SHIFT AND WAS MED WITH ZOFRAN PER ORDERS. BLOOD PRESSURE HAS BEEN MEASURED ON LOWER LEGS D/T POWERGLIDE AND DVT IN ARMS. POWERGLIDE DRAWS AND FLUSHES WELL. ASSISTED WITH ADL'S PRN.
--- NOTE | 2019-07-20 15:44 | NUR ---
SHIFT SUMMARY PT A&OX4, VSS, RA, BP TAKEN ON LE D/T BLE DVT'S & POWERGLIDE. POD6 BOWEL RESECTION, AWILDA VAC IN PLACE; PT REP PASSING FLATUS AND MULT BM'S, PAIN MANAGED WITH 1 TAB NORCO PRN. N&V W/ZOFRAN X1 TODAY; LOW PO INTAKE; PPN @ 105 MLS/HR. AMB W/FWW/GB/SBA TO BRP AND IN ROOM; WORKED WITH OT/PT TODAY; UP TO CHAIR FOR MEALS+. VOIDING WELL. PT IS TCDB/I.S. T/O SHIFT. WILL REPORT TO ONCOMING NOC RN.
--- NOTE | 2019-07-20 23:41 | NUR ---
PT IMPULSIVE AND DISORIENTATED AT TIMES, REORIENTATES SELF EASILY. ABLE TO AMBULATE INDEP. WITH SBA, APPEARS VERY DECONDITIONED. MEDICATED 2X FOR NAUSEA, DENIES EMESIS. CALL LIGHT IN REACH AND BED ALARM ON FOR SAFETY.
--- NOTE | 2019-07-21 04:24 | NUR ---
SHIFT SUMMARY PT C/O OF NAUSEA 3X T/O SHIFT W/OUT EMESIS; MEDICATED PER EMAR. AMBULATED TO BATHROOM TWICE WITH 2 LOOSE/LIQUID BM'S. IS 1 PERSON ASSIST W/FWW AND GATE BELT, R/T UNSTEADY GATE/DECONDITIONED. ON 2L NC WITH SPO2 AT 95%. AWILDA TO MIDLINE IN PLACE WITH SMALL AMOUNT SS DRAINAGE. MEPILEX C/D/I TO RIGHT HIP. IMPULSIVE AT TIME OOB, BED ALARM ON FOR SAFETY. PPN INFUSING PER ORDERS. CONTS. TO HAVE MIN PO INTAKE. APPEARS TO HAVE RESTED WELL T/O NIGHT. CURRENTLY RESTINGIN BED WITH CALL LIGHT IN REACH. WILL CONT TO MONITOR AND GIVE REPORT TO ONCOMING RN.
[2019-07-21 07:16] LABS: BASOPHILS ABSOLUTE AUTO 0.04 K/mm3 (0.00-0.23); BASOPHILS PERCENT AUTO 0 % (0-2); EOSINOPHILS ABSOLUTE AUTO 0.13 K/mm3 (0.00-0.68); EOSINOPHILS PERCENT AUTO 1 % (0-6); Hematocrit 27.3 % (33.0-51.0); IMMATURE GRAN ABSOLUTE AUTO 0.43 K/mm3 (0.00-0.10); IMMATURE GRAN PERCENT AUTO 4 % (0-1); LYMPHOCYTES ABSOLUTE AUTO 1.11 K/mm3 (0.84-5.20); LYMPHOCYTES PERCENT AUTO 9 % (21-46); MONOCYTES ABSOLUTE AUTO 0.82 K/mm3 (0.16-1.47); MONOCYTES PERCENT AUTO 7 % (4-13); Mean Corpuscular HGB 30.7 pg (26.0-34.0); Mean Corpuscular Volume 93 fL (80-100); NEUTROPHILS ABSOLUTE AUTO 9.71 K/mm3 (1.96-9.15); NEUTROPHILS PERCENT AUTO 79 % (41-73); Platelet Count 278 K/mm3 (150-400); RDW Coefficient Variation 12.8 % (11.7-14.2); RDW Standard Deviation 43.7 fL (35.1-46.3); Red Blood Cell Count 2.93 M/mm3 (3.80-5.20); White Blood Cell Count 12.24 K/mm3 (4.00-11.30)
[2019-07-21 07:52] LABS: Alanine Aminotransfer (ALT/SGP 54 U/L (12-78); Albumin, Blood 2.1 g/dL (3.4-5.0); Albumin/Globulin Ratio 0.6 (0.8-1.8); Alk Phos 59 U/L (50-136); Anion Gap 7 mmol/L (6-16); Aspartate Aminotrans (AST/SGOT 56 U/L (12-37); Bilirubin, Total 0.5 mg/dL (0.1-1.0); Blood Urea Nitrogen 18 mg/dL (8-24); Bun/Creatinine Ratio 23.9 (12.0-20.0); CO2, Blood 26 mmol/L (21-32); Calcium, Blood 8.4 mg/dL (8.5-10.1); Chloride, Blood 101 mmol/L (98-108); Creatinine, Blood 0.75 mg/dL (0.40-1.00); Globulin, Blood 3.6 g/dL (2.2-4.0); Glomerular Filtration Rate >60 (60-); Glucose, Blood 97 mg/dL (70-99); Magnesium, Blood 1.7 mg/dL (1.6-2.4); Phosphorus, Blood 4.5 mg/dL (2.5-4.9); Potassium, Blood 4.4 mmol/L (3.5-5.5); Sodium, Blood 134 mmol/L (136-145); Total Protein, Blood 5.7 g/dL (6.4-8.2)
--- NOTE | 2019-07-21 15:07 | NUR ---
[address] Henry
--- NOTE | 2019-07-21 18:27 | NUR ---
SUMMARY PT REPORTS SHE IS FEELING BETTER THIS EVENING COMPARED TO THIS MORNING. TOOK SMALLL AMOUNTS OF FULL LIQUID AND DENIES NAUSEA AT THIS TIME. PT STANDBY ASSIST OUT OF BED
[2019-07-22 04:19] LABS: BASOPHILS ABSOLUTE AUTO 0.04 K/mm3 (0.00-0.23); BASOPHILS PERCENT AUTO 0 % (0-2); EOSINOPHILS ABSOLUTE AUTO 0.15 K/mm3 (0.00-0.68); EOSINOPHILS PERCENT AUTO 2 % (0-6); Hematocrit 25.8 % (33.0-51.0); Hemoglobin 8.4 g/dL (11.5-16.0); IMMATURE GRAN ABSOLUTE AUTO 0.41 K/mm3 (0.00-0.10); IMMATURE GRAN PERCENT AUTO 5 % (0-1); LYMPHOCYTES ABSOLUTE AUTO 1.35 K/mm3 (0.84-5.20); LYMPHOCYTES PERCENT AUTO 15 % (21-46); MONOCYTES ABSOLUTE AUTO 0.79 K/mm3 (0.16-1.47); MONOCYTES PERCENT AUTO 9 % (4-13); Mean Corpuscular HGB 30.9 pg (26.0-34.0); Mean Corpuscular HGB Conc 32.6 g/dL (31.5-36.5); Mean Corpuscular Volume 95 fL (80-100); Mean Platelet Volume 9.3 fL (9.1-12.4); NEUTROPHILS ABSOLUTE AUTO 6.44 K/mm3 (1.96-9.15); NEUTROPHILS PERCENT AUTO 70 % (41-73); Platelet Count 260 K/mm3 (150-400); RDW Coefficient Variation 12.8 % (11.7-14.2); Red Blood Cell Count 2.72 M/mm3 (3.80-5.20); White Blood Cell Count 9.18 K/mm3 (4.00-11.30)
--- NOTE | 2019-07-22 04:21 | NUR ---
SHIFT SUMMARY AA0X4, VSS. PT WALKED TO BATHROOM TO VOID. 1 LARGE LIQUID STOOL PER PT. TOLERATING PO WELL. DENIED NAUSEA DURING SHIFT, DENIED PAIN DURING SHIFT. CLINIMIX INFUSING. PICCO DRESSIG INTACT. STBY ASSIST WITH TRANSFER. PT REPORTS FEELING BETTER.
[2019-07-22 04:37] LABS: Alanine Aminotransfer (ALT/SGP 76 U/L (12-78); Albumin, Blood 2.1 g/dL (3.4-5.0); Albumin/Globulin Ratio 0.6 (0.8-1.8); Alk Phos 63 U/L (50-136); Anion Gap 7 mmol/L (6-16); Aspartate Aminotrans (AST/SGOT 81 U/L (12-37); Bilirubin, Total 0.5 mg/dL (0.1-1.0); Blood Urea Nitrogen 19 mg/dL (8-24); Bun/Creatinine Ratio 23.5 (12.0-20.0); CO2, Blood 26 mmol/L (21-32); Calcium, Blood 8.3 mg/dL (8.5-10.1); Chloride, Blood 103 mmol/L (98-108); Creatinine, Blood 0.81 mg/dL (0.40-1.00); Globulin, Blood 3.5 g/dL (2.2-4.0); Glomerular Filtration Rate >60 (60-); Glucose, Blood 99 mg/dL (70-99); Magnesium, Blood 1.7 mg/dL (1.6-2.4); Phosphorus, Blood 4.2 mg/dL (2.5-4.9); Potassium, Blood 4.3 mmol/L (3.5-5.5); Sodium, Blood 136 mmol/L (136-145); Total Protein, Blood 5.6 g/dL (6.4-8.2)
--- NOTE | 2019-07-22 15:10 | NUR ---
SHIFT SUMMARY PT HAS STRUGGLED WITH NO APPETITE TODAY. WHEN FORCING HERSELF TO HAVE A FEW BITES OF LUNCH BECAME NAUSEATED; NO EMESIS. PT HAS SATUP IN CHAIR FOR MEALS, WALKED IN HALLWAY, AND IS USING RESTROOM INSTEAD OF BSC. DECLINES PAIN MEDS. CLINIMIX & LIPIDS INFUSING.
--- NOTE | 2019-07-22 16:19 | NUR ---
REPORT RECIEVED FROM BG MERRILL. ASSUMED CARE AT ABOUT 1600
[2019-07-23 04:13] LABS: BASOPHILS ABSOLUTE AUTO 0.06 K/mm3 (0.00-0.23); BASOPHILS PERCENT AUTO 1 % (0-2); EOSINOPHILS PERCENT AUTO 1 % (0-6); Hemoglobin 8.9 g/dL (11.5-16.0); IMMATURE GRAN ABSOLUTE AUTO 0.33 K/mm3 (0.00-0.10); IMMATURE GRAN PERCENT AUTO 3 % (0-1); LYMPHOCYTES ABSOLUTE AUTO 1.15 K/mm3 (0.84-5.20); LYMPHOCYTES PERCENT AUTO 12 % (21-46); MONOCYTES ABSOLUTE AUTO 0.72 K/mm3 (0.16-1.47); MONOCYTES PERCENT AUTO 7 % (4-13); Mean Corpuscular HGB 30.8 pg (26.0-34.0); Mean Corpuscular Volume 93 fL (80-100); Mean Platelet Volume 9.8 fL (9.1-12.4); NEUTROPHILS ABSOLUTE AUTO 7.54 K/mm3 (1.96-9.15); NEUTROPHILS PERCENT AUTO 76 % (41-73); Platelet Count 305 K/mm3 (150-400); RDW Coefficient Variation 12.5 % (11.7-14.2); RDW Standard Deviation 43.1 fL (35.1-46.3); Red Blood Cell Count 2.89 M/mm3 (3.80-5.20)
[2019-07-23 04:32] LABS: Alanine Aminotransfer (ALT/SGP 125 U/L (12-78); Albumin, Blood 2.2 g/dL (3.4-5.0); Albumin/Globulin Ratio 0.6 (0.8-1.8); Alk Phos 83 U/L (50-136); Anion Gap 7 mmol/L (6-16); Aspartate Aminotrans (AST/SGOT 125 U/L (12-37); Bilirubin, Total 0.7 mg/dL (0.1-1.0); Blood Urea Nitrogen 19 mg/dL (8-24); Bun/Creatinine Ratio 25.5 (12.0-20.0); CO2, Blood 25 mmol/L (21-32); Calcium, Blood 8.5 mg/dL (8.5-10.1); Chloride, Blood 103 mmol/L (98-108); Creatinine, Blood 0.75 mg/dL (0.40-1.00); Globulin, Blood 3.9 g/dL (2.2-4.0); Glomerular Filtration Rate >60 (60-); Glucose, Blood 104 mg/dL (70-99); Potassium, Blood 3.9 mmol/L (3.5-5.5); Sodium, Blood 135 mmol/L (136-145); Total Protein, Blood 6.1 g/dL (6.4-8.2)
--- NOTE | 2019-07-23 04:39 | NUR ---
SHIFT SUMMARY AA0X4 VSS. PT REPORTS PASSING GAS, STILL HAVING LOOSE STOOLS WITH URGENCY. PT ABLE TO TRANSFER TO BSC WITH MINIMAL ASSISTANCE. REPORTS FEELING WEAK STILL. DENIED PAIN DURING SHIFT, MEDICATED FOR NAUSEA X1. SAMMY OPEN TO AIR, REDNESS TOWARDS BASE OF INCISION AND SMALL AMOUNT OF LEAKING, REINFORCED WITH ABD FOR LEAKING. TOLERATING PO, DENIES MUCH OF AN APPETITE.
--- NOTE | 2019-07-23 14:17 | NUR ---
SHIFT SUMMARY PT A&OX4, VSS, POD9 EXP LAP JEFFREY BOWEL RESECTION, SAMMY SALVAGE ENGINEER, REDNESS - SURGEON AWARE, W/ABD PAD FOR SMALL AMT DRAINAGE, PASSING FLATUS AND MULTIPLE LIQUID BMS. VOIDING WELL. AMB SBA FWW & GB TO BRP AND UP TO CHAIR FOR MEALS. LUCIANA SMALL AMT PO INTAKE - REG ADULT DIET, ZOFRAN GIVEN X1. PT THINKS NAUSEA R/T PAIN; EDU & ENC Q4H 5 MG NORCO. TCDB/I.S./FLUTTER VALVE EDU & ENC, PT DEMONSTRATED AND REPORTED DEEP BREATHING T/O. WILL REPORT TO ONCOMING RN.
--- NOTE | 2019-07-23 17:30 | NUR ---
CARE ASSUMED OF PT AT 1505. PT ALERT AND ORIENTED. PAIN MEDICATION PROVIDED. WILL CONTINUE TO MONITOR.
--- NOTE | 2019-07-23 18:47 | NUR ---
SHIFT SUMMARY PAIN MANAGED. NO CHANGES TO REPORT AT THIS TIME.
[2019-07-24 04:05] LABS: BASOPHILS ABSOLUTE AUTO 0.06 K/mm3 (0.00-0.23); BASOPHILS PERCENT AUTO 1 % (0-2); EOSINOPHILS ABSOLUTE AUTO 0.15 K/mm3 (0.00-0.68); EOSINOPHILS PERCENT AUTO 2 % (0-6); Hematocrit 25.2 % (33.0-51.0); Hemoglobin 8.2 g/dL (11.5-16.0); IMMATURE GRAN ABSOLUTE AUTO 0.24 K/mm3 (0.00-0.10); IMMATURE GRAN PERCENT AUTO 3 % (0-1); LYMPHOCYTES ABSOLUTE AUTO 1.23 K/mm3 (0.84-5.20); LYMPHOCYTES PERCENT AUTO 16 % (21-46); MONOCYTES PERCENT AUTO 9 % (4-13); Mean Corpuscular HGB 30.5 pg (26.0-34.0); Mean Corpuscular HGB Conc 32.5 g/dL (31.5-36.5); Mean Corpuscular Volume 94 fL (80-100); Mean Platelet Volume 9.4 fL (9.1-12.4); NEUTROPHILS PERCENT AUTO 70 % (41-73); Platelet Count 272 K/mm3 (150-400); RDW Coefficient Variation 12.7 % (11.7-14.2); RDW Standard Deviation 43.2 fL (35.1-46.3); Red Blood Cell Count 2.69 M/mm3 (3.80-5.20); White Blood Cell Count 7.88 K/mm3 (4.00-11.30)
[2019-07-24 04:24] LABS: Alanine Aminotransfer (ALT/SGP 166 U/L (12-78); Albumin, Blood 2.1 g/dL (3.4-5.0); Albumin/Globulin Ratio 0.6 (0.8-1.8); Alk Phos 106 U/L (50-136); Anion Gap 5 mmol/L (6-16); Aspartate Aminotrans (AST/SGOT 170 U/L (12-37); Bilirubin, Total 0.7 mg/dL (0.1-1.0); Blood Urea Nitrogen 21 mg/dL (8-24); Bun/Creatinine Ratio 25.5 (12.0-20.0); CO2, Blood 27 mmol/L (21-32); Calcium, Blood 8.1 mg/dL (8.5-10.1); Chloride, Blood 102 mmol/L (98-108); Creatinine, Blood 0.82 mg/dL (0.40-1.00); Globulin, Blood 3.8 g/dL (2.2-4.0); Glomerular Filtration Rate >60 (60-); Glucose, Blood 89 mg/dL (70-99); Potassium, Blood 4.1 mmol/L (3.5-5.5); Sodium, Blood 134 mmol/L (136-145); Total Protein, Blood 5.9 g/dL (6.4-8.2)
--- NOTE | 2019-07-24 06:08 | NUR ---
PT IN NO DISTRESS.DENIES PAIN. HOPING POSSIBLE DISCHARGE TODAY OR TOMORROW.
--- NOTE | 2019-07-24 14:13 | NUR ---
ON June I ASKED THE PATIENT FOR PERMISSION TO TAKE CARE OF THEM A INSPECTOR EYEGLASS FRAMES ON Wednesday.THE PATIENT AGREED TO CARE.
--- NOTE | 2019-07-24 18:46 | NUR ---
SHIFT SUMMARY PT A&OX4, VSS, RA, AMB W/SBA FWW & GB TO BRP AND IN HALLWAY, UP TO CHAIR. LUCIANA PO, INCREASED PO INTAKE TO HALF OF EACH MEAL THIS SHIFT, DENIES N&V. PAIN MANAGED WITH TYLENOL. PLAN FOR DC TOMORROW. WILL REPORT TO ONCOMING NOC BG.
--- NOTE | 2019-07-25 05:19 | NUR ---
SHIFT SUMMARY: JASON RESTED COMFORTABLY FOR THE MAJORITY OF THE NIGHT. SHE REPORTS GOOD PAIN CONTROL WITH TYLENOL. SHE IS USING THE BATHROOM WITHOUT DIFFICULTY, ONE PERSON STANDBY ASSIST. SHE IS TOLERATING THE REGULAR DIET WELL. SHE IS ABLE TO MAKE HER NEEDS KNOWN. SHE IS LOOKING FORWARD TO THE POSSIBILITY OF GOING HOME TODAY. SHE DENIES DIARRHEA, N/V AT THIS TIME. SAMMY TO MIDLINE INCISION INTACT, SOME ERYTHEMA AT BASE OF INCISION WITH DRAINAGE; SURGEON AWARE. SHE IS ABLE TO MAKE HER NEEDS KNOWN. SHE IS LYING IN BED WITH HER CALL LIGHT IN REACH.
[2019-07-25 06:36] LABS: Triglycerides 79 mg/dL (30-160)
[2019-07-25] MEDS ORDERED: CITA20 PO (11:14)
[2019-07-25] MEDS ORDERED: FERSU300 PO (11:14)
[2019-07-25] MEDS ORDERED: ASCO500 PO (11:14)
[2019-07-25] MEDS ORDERED: XARELTO15 M1 PO (11:14)
--- NOTE | 2019-07-25 15:39 | NUR ---
DISCHARGE PT TOLERATING DIET, PAIN WELL CONTROLLED, HAD SOFT FORMED BM TODAY. WAITED FOR DR ONEILL PRIOR TO D/C. SAMMY WERE REMOVED AND STERI STRIPS PLACED. SCRIPTS CALLED AND WALKER DELIVERED TO PT. ESCORTED OUT VIA W/C. EXCITED FOR D/C.
[2019-07-26] MEDS ORDERED: Ferrous Sulfat325 M2 PO (05:19)
== END 2019-07-25 15:34 | disposition home or self-care (01) | DRG 329 ==
LOC: ER 16:48 → MEDS 17:49 → ICUW 17:49 → MEDS 19:14 → ICUW 07-14 14:55 → SURS 07-15 13:48
PROVIDERS: Emergency Medicine; Family Medicine; Internal Medicine; Internal Medicine Gastroenterology; Surgery; ADMIT Family Medicine
PROC: 0DJ08ZZ Inspection of Upper Intestinal Tract, Via Natural or Artificial Opening Endoscopic (ICD-10-PCS; 2019-07-11)
PROC: 0DT80ZZ Resection of Small Intestine, Open Approach (ICD-10-PCS; 2019-07-14)
PROC: 0DN80ZZ Release Small Intestine, Open Approach (ICD-10-PCS; principal; 2019-07-14 13:00)
PROC: 0DJ00ZZ Inspection of Upper Intestinal Tract, Open Approach (ICD-10-PCS; 2019-07-14 13:00)
DX: K56.609 Unspecified intestinal obstruction, unspecified as to partial versus complete obstruction (principal); J12.89 Other viral pneumonia; J10.01 Influenza due to other identified influenza virus with the same other identified influenza virus pneumonia; N17.9 Acute kidney failure, unspecified; I13.0 Hypertensive heart and chronic kidney disease with heart failure and stage 1 through stage 4 chronic kidney disease, or unspecified chronic kidney disease; I50.30 Unspecified diastolic (congestive) heart failure; N39.0 Urinary tract infection, site not specified; R79.89 Other specified abnormal findings of blood chemistry; I35.0 Nonrheumatic aortic (valve) stenosis; N28.1 Cyst of kidney, acquired; E86.0 Dehydration; N18.9 Chronic kidney disease, unspecified; K52.9 Noninfective gastroenteritis and colitis, unspecified; R55 Syncope and collapse
CPT/HCPCS: 0097U; 0099U; 36415; 71045; 74018; 74019; 74177; 76705; 76770; 80047; 80048; 80053; 81001; 82140; 82947; 83605; 83690; 83735; 83880; 83993; 84100; 84439; 84443; 84478; 84481; 84484; 85014; 85025; 86140; 87040; 87070; 87205; 87493; 88305; 88307; 88342; 93306; 93880; 93971; 96361; 96374; 96375; 97110; 97112; 97116; 97162; 97165; 97530; 97535; 99285-25; A9270; A9270-GY; C1751; J0330; J0456; J0610; J0696; J1100; J1170; J1650; J1885; J2060; J2370; J2405; J2550; J2704; J2765; J3010; J3475; J3480; J7030; J7050; J7120; J7131; P9046; Q9967

== ENCOUNTER 2019-09-18 05:48 | Day surgery (SDC) | payer BC ==
[~2019-09-18] VITALS: Ht 162.6 cm; Wt 56.0 kg
[~2019-09-18 05:48] MED LIST changes: +ASCO500 PO; +CITA20 PO; +ELIQUIS2.5 MG PO; +FERSU300 PO; +Ferrous Sulfat325 M2 PO; +LATA.005SO BOTHEYES; +RALO60 PO; +XARELTO15 M1 PO
--- NOTE | 2019-09-18 07:37 | NUR ---
PT ARRIVED BACK TO RECOVERY ROOM IN RECLINER. RIGHT TR BAND SITE WITH WRIST BOARD IN PLACE SOFT NON-TENDER WITH NO HEAMTOMA AND NO PULSATILE BLEEDING. PT DENIES CHEST PAIN. CALLL LIGHT IN REACH.
--- NOTE | 2019-09-18 07:43 | NUR ---
CALL LIGHT IN REACH.
--- NOTE | 2019-09-18 08:20 | NUR ---
DR WALLACE IN ROOM TO SEE PT.
[2019-09-18] MEDS ORDERED: Aspir 8181 MG PO (08:22)
[2019-09-18] MEDS ORDERED: OMEP20ER PO (08:24)
--- NOTE | 2019-09-18 09:28 | NUR ---
2 CC OF AIR REMOVED FROM RIGHT TR BAND - PULSATILE TRACK OOZING NOTED- 2 CC OF AIR ADDED TO TR BAND - TRACK OOZING STOPPED.
--- NOTE | 2019-09-18 10:05 | NUR ---
7 CC OF AIR REMOVED FROM NOW DEFLATED RIGHT TR BAND; SOFT NON-TENDER WITH NO HEMATOMA AND NO PULSATILE BLEEDING. TR AIR WAS REMOVED OVER 10 MIN.
--- NOTE | 2019-09-18 10:23 | NUR ---
NO CHANGES TO DEFLATED RIGHT TR BAND.
--- NOTE | 2019-09-18 11:37 | NUR ---
DEFLATED RIGHT TR BAND REMOVED AND POLYMEM PLACE OVER RIGHT RADIAL SITE; WRIST BOARD IN PLACE - NO HEMATOMA, NO PULSATILE BLEEDING, SOFT NON-TENDER. 20 G IV DISCONTINUED FROM LEFT AC WITH INTACT CANNULA. PT ESCORTED OUT VIA WHEELCHAIR ESCORT.
== END 2019-09-18 11:40 | disposition home or self-care (01) ==
LOC: MHTC 05:48
DX: Z01.810 Encounter for preprocedural cardiovascular examination (principal); I35.0 Nonrheumatic aortic (valve) stenosis; I10 Essential (primary) hypertension; E78.5 Hyperlipidemia, unspecified; I82.623 Acute embolism and thrombosis of deep veins of upper extremity, bilateral; Z79.01 Long term (current) use of anticoagulants; Z79.899 Other long term (current) drug therapy; Z88.1 Allergy status to other antibiotic agents; Z88.8 Allergy status to other drugs, medicaments and biological substances; Z91.048 Other nonmedicinal substance allergy status
CPT/HCPCS: 93454; 99152; C1769; C1894; J1644; J2250; J3010; J7030; Q9967

== ENCOUNTER 2019-12-06 07:05 | Inpatient (IN) | payer BC, MEDICARE ==
[~2019-12-06] VITALS: Ht 162.6 cm; Wt 58.8 kg
[~2019-12-06 07:05] MED LIST changes: +Aspir 8181 MG PO; +OMEP20ER PO
[2019-12-06 07:52] LABS: BASOPHILS ABSOLUTE AUTO 0.05 K/mm3 (0.00-0.23); BASOPHILS PERCENT AUTO 0 % (0-2); EOSINOPHILS ABSOLUTE AUTO 0.14 K/mm3 (0.00-0.68); EOSINOPHILS PERCENT AUTO 1 % (0-6); Hemoglobin 10.7 g/dL (11.5-16.0); IMMATURE GRAN ABSOLUTE AUTO 0.12 K/mm3 (0.00-0.10); IMMATURE GRAN PERCENT AUTO 1 % (0-1); LYMPHOCYTES PERCENT AUTO 15 % (21-46); MONOCYTES ABSOLUTE AUTO 0.73 K/mm3 (0.16-1.47); MONOCYTES PERCENT AUTO 6 % (4-13); Mean Corpuscular HGB 29.1 pg (26.0-34.0); Mean Corpuscular HGB Conc 30.6 g/dL (31.5-36.5); Mean Corpuscular Volume 95 fL (80-100); Mean Platelet Volume 9.5 fL (9.1-12.4); NEUTROPHILS ABSOLUTE AUTO 8.83 K/mm3 (1.96-9.15); NEUTROPHILS PERCENT AUTO 76 % (41-73); Platelet Count 150 K/mm3 (150-400); RDW Coefficient Variation 15.9 % (11.7-14.2); RDW Standard Deviation 55.1 fL (35.1-46.3); Red Blood Cell Count 3.68 M/mm3 (3.80-5.20); White Blood Cell Count 11.57 K/mm3 (4.00-11.30)
[2019-12-06 08:22] LABS: Anion Gap 6 mmol/L (6-16); Blood Urea Nitrogen 18 mg/dL (8-24); Bun/Creatinine Ratio 21.6 (12.0-20.0); CO2, Blood 27 mmol/L (21-32); Calcium, Blood 8.5 mg/dL (8.5-10.1); Chloride, Blood 106 mmol/L (98-108); Creatinine, Blood 0.83 mg/dL (0.40-1.00); Glomerular Filtration Rate >60 (60-); Glucose, Blood 107 mg/dL (70-99); Potassium, Blood 3.8 mmol/L (3.5-5.5); Sodium, Blood 139 mmol/L (136-145)
[2019-12-06 08:26] LABS: International Normalized Ratio 1.13
--- NOTE | 2019-12-06 17:22 | NUR ---
SUMMARY PT WITH EPISODES OF RIGHT LEG SPASMS AND STATES RESTING WELL BETWEEN THESE EPISODES. LUCIANA SMALL AMOUNTS OF PO FLUIDS AND FOODS. ECHO IS CURRENTLY BEING PERFORMED AT BEDSIDE
[2019-12-06] MEDS ORDERED: Amiodarone HCl200 MG PO (20:58)
[2019-12-06] MEDS ORDERED: METO25 PO (21:00)
[2019-12-06] MEDS ORDERED: LATA.005SO BOTHEYES (21:00)
[2019-12-06] MEDS ORDERED: OMEP20ER PO (21:02)
--- NOTE | 2019-12-07 04:07 | NUR ---
SHIFT SUMMARY PT IS A/O X4. HAS BEEN BEDREST D/T HIP FX. PT HAS NOT BEEN ABLE TO TOLERATE MUCH REPOSITIONING DURING THE NIGHT D/T PAIN WITH ANY MOVEMENT. PT HAS BEEN REPOSITIONED MUCH SHE CAN TOLERATE. PAIN MANAGED WITH IV PAIN MED PER ORDER; SEE EMAR. PT C/O NAUSEA ONCE AND WAS MED WITH ZOFRAN; THIS SEEMED TO HELP. NO EMESIS. VSS. ICE PACK IN PLACE TO R HIP. PT HAS BEEN ASSISTED WITH ADL'S PRN. NO ACUTE CHANGES.
[2019-12-07 04:54] LABS: Hematocrit 34.9 % (33.0-51.0); Hemoglobin 10.6 g/dL (11.5-16.0); Mean Corpuscular HGB 28.9 pg (26.0-34.0); Mean Corpuscular HGB Conc 30.4 g/dL (31.5-36.5); Mean Corpuscular Volume 95 fL (80-100); Mean Platelet Volume 9.2 fL (9.1-12.4); Platelet Count 128 K/mm3 (150-400); RDW Coefficient Variation 15.8 % (11.7-14.2); RDW Standard Deviation 55.2 fL (35.1-46.3); Red Blood Cell Count 3.67 M/mm3 (3.80-5.20); White Blood Cell Count 10.34 K/mm3 (4.00-11.30)
[2019-12-07 05:13] LABS: Bun/Creatinine Ratio 16.5 (12.0-20.0); Calcium, Blood 8.4 mg/dL (8.5-10.1); Creatinine, Blood 1.03 mg/dL (0.40-1.00); Potassium, Blood 3.7 mmol/L (3.5-5.5)
--- NOTE | 2019-12-07 17:29 | NUR ---
CALL TO DR MINA RE: LOW UO. PATIENT STATES 'I THOUGHT I WAS GETTING IV FLUIDS SO I HAVENT BEEN DRINKING MUCH.' NO NEW ORDERS. WILL PUSH PO FLUIDS.
--- NOTE | 2019-12-07 18:06 | NUR ---
SHIFT SUMMARY PATIENT DENIES PAIN OR OTHER DISCOMFORT. REPOSITIONED PATIENT WISHES. TAKING PO FLUIDS SLOWLY. NO C/O.
--- NOTE | 2019-12-07 18:09 | NUR ---
SHIFT SUMMARY PATIENT STATES PAIN RELIEVED WITH DILAUDID. SLEPT INTERMITANTLY T/O SHIFT. CIRC CHECKS TO RLE WNL. LOW UO, CALL TO HOSPITALIST, SEE NOTE. PO FLUIDS ENCOURAGED. PLAN FOR OR TOMORROW WITH DR VIVAR.
--- NOTE | 2019-12-08 04:18 | NUR ---
SHIFT SUMMARY PT IS A/O X4. HAS BEEN BEDREST D/T HIP FX. PAIN MANAGED WITH IV PAIN MED PER ORDER; SEE EMAR. PT HAS NOT TOLERATED MUCH REPOSITIONING D/T PAIN. PT HAS BEEN NPO SINCE MIDNIGHT. WITT IN PLACE, HOWEVER PT HAS HAD LOW URINE OUTPUT. HOSPITALIST CALLED ABOUT LOW URINE OUTPUT AND FLUIDS WERE ORDERED AND STARTED; SEE EMAR. NO ACUTE CHANGES OVERNIGHT.
[2019-12-08 04:43] LABS: Bun/Creatinine Ratio 12.1 (12.0-20.0); Calcium, Blood 8.1 mg/dL (8.5-10.1); Creatinine, Blood 2.72 mg/dL (0.40-1.00); Potassium, Blood 4.7 mmol/L (3.5-5.5)
[2019-12-08 16:30] LABS: Blood, Urine 5+ (Neg); Glucose Qualitative, Urine Neg (Neg); Ketones, Urine 1+ (Neg); Leukocyte Esterase, Urine 3+ (Neg); Nitrite, Urine Neg (Neg); Protein, Urine 3+ (Neg); Urobilinogen, Urine 2+ (Normal)
[2019-12-08 16:47] LABS: Appearance, Urine Cloudy (Clear); Bilirubin, Urine 2+ (Neg); Color, Urine Amber (P-Yellow); White Blood Cells, Urine TNTC /hpf (0-5)
[2019-12-08 16:48] LABS: Bacteria Many /hpf; Squamous Epithelial Cells Rare /hpf (Few)
[2019-12-08 17:01] LABS: CPK Creatine Kinase 65 U/L (26-193)
[2019-12-08 17:02] LABS: Albumin, Blood 2.4 g/dL (3.4-5.0); Anion Gap 8 mmol/L (6-16); Blood Urea Nitrogen 38 mg/dL (8-24); Bun/Creatinine Ratio 11.9 (12.0-20.0); CO2, Blood 28 mmol/L (21-32); Calcium, Blood 7.8 mg/dL (8.5-10.1); Chloride, Blood 100 mmol/L (98-108); Glomerular Filtration Rate 15 (60-); Glucose, Blood 98 mg/dL (70-99); Phosphorus, Blood 7.9 mg/dL (2.5-4.9); Potassium, Blood 4.7 mmol/L (3.5-5.5); Sodium, Blood 136 mmol/L (136-145)
--- NOTE | 2019-12-08 20:25 | NUR ---
SHIFT SUMMARY PATIENT MADE COMFORTABLE T/O SHIFT WITH IV DILAUDID. CARDIOLOGY AND NEPHROLOGY CONSULTS DONE THIS AFTERNOON. IVF CURRENTLY INFUSING PER DR GALLAGHER'S ORDER. POOR UO TODAY, DR MINA AWARE. PLAN FOR OC TO OR TOMORROW, NO ACUTE CHANGES OR C/O. RLE CIRC CHECKS WNL.
[2019-12-09 04:17] LABS: Hematocrit 30.3 % (33.0-51.0); Hemoglobin 9.1 g/dL (11.5-16.0); Mean Corpuscular HGB 29.4 pg (26.0-34.0); Mean Platelet Volume 9.4 fL (9.1-12.4); Platelet Count 115 K/mm3 (150-400); RDW Coefficient Variation 15.8 % (11.7-14.2); RDW Standard Deviation 55.6 fL (35.1-46.3); White Blood Cell Count 11.45 K/mm3 (4.00-11.30)
[2019-12-09 04:19] LABS: Mean Corpuscular Volume 98 fL (80-100)
[2019-12-09 04:34] LABS: Albumin, Blood 2.3 g/dL (3.4-5.0); Anion Gap 7 mmol/L (6-16); Blood Urea Nitrogen 43 mg/dL (8-24); Bun/Creatinine Ratio 13.4 (12.0-20.0); CO2, Blood 27 mmol/L (21-32); Calcium, Blood 7.8 mg/dL (8.5-10.1); Chloride, Blood 102 mmol/L (98-108); Creatinine, Blood 3.22 mg/dL (0.40-1.00); Glomerular Filtration Rate 15 (60-); Glucose, Blood 107 mg/dL (70-99); Phosphorus, Blood 6.6 mg/dL (2.5-4.9); Potassium, Blood 4.7 mmol/L (3.5-5.5); Sodium, Blood 136 mmol/L (136-145)
--- NOTE | 2019-12-09 06:10 | NUR ---
SHIFT SUMMARY PT MEDICATED 2X FOR PAIN. APPEARED TO BE HALLUCINATING AROUND 0430 THIS MORNING AND BECOMING MORE AGGITATED, STATING "THE POLICE ARE OUT IN THE [place] AND GET THOSE GIRLS OUT OF HERE, I DONT WANT TO EVER SEE THEM AGAIN!" PT AWARE OF SELF, PLACE, AND EVENT. DENIED HALLUCINATION OR FEELING DISORIENTATED. DECREASE IN GFR TO 14 AND POSSIBLE UTI W/NO ABX COVERAGE NOTED IN TODAY'S LABS. WILL DISCUSS WITH DAY NURSE. DR. GARCIA AWARE OF CHANGE IN MENTATION, OUTPUT OF 150 AND GFR. PT LCENY RESTING IN BED WITH ICE TO RIGHT HIP AND CALL LIGHT IN REACH. WILL CONT TO MONITOR AND GIVE REPORT TO ONCOMING RN.
--- NOTE | 2019-12-09 07:14 | NUR ---
ASSUMED PATIENT CARE. PATIENT SLEEPING COMFORTABLY IN BED, NO SIGNS OF ACUTE DISTRESS, WCTM.
--- NOTE | 2019-12-09 08:15 | NUR ---
PATIENT HYPOTENSIVE, BP RETAKEN MULTIPLE TIMES WITH BOTH ARM AND WRIST CUFF. PATIENT IS AROUSABLE WITH VERBAL STIMULI. CALLED DR. MINA, LEFT MESSAGE. [facility].
--- NOTE | 2019-12-09 08:40 | NUR ---
PATIENT'S BP UP TO 93/48. DR. ZAMBRANO AT BEDSIDE, NOTIFIED OF HYPOTENSION THIS SHIFT. PLAN IS TO CONTINUE IV HYDRATION ORDERED BY NEPHROLOGY.
--- NOTE | 2019-12-09 18:04 | NUR ---
NO ACUTE EVENTS THIS SHIFT. PATIENT WAS HYPOTENSIVE AT START OF SHIFT, DR. ZAMBRANO NOTIFIED, NO NEW ORDERS, CONTINUED TO MONITOR. BP IMPROVED OVER COURSE OF MORNING FROM 87/41 TO 97/50. UA SHOWED GROWTH, IV ABX STARTED TODAY FOR TREATMENT OF UTI. CARDS AND NEPHROLOGY CONTINUE TO FOLLOW PATIENT. PATIENT CONTINUES TO HAVE MODERATE TO SEVERE PAIN IN R. HIP, R. ARM, AND R. SIDE DUE TO FALL. DILAUDID EFFECTIVE FOR PAIN CONTROL. PATIENT ASSISTED IN REPOSITIONING THROUGHOUT SHIFT. PLAN IS FOR PATIENT TO HAVE HIP SURGERY TOMORROW.
[2019-12-10 04:30] LABS: BASOPHILS ABSOLUTE AUTO 0.06 K/mm3 (0.00-0.23); BASOPHILS PERCENT AUTO 1 % (0-2); EOSINOPHILS ABSOLUTE AUTO 0.09 K/mm3 (0.00-0.68); EOSINOPHILS PERCENT AUTO 1 % (0-6); Hematocrit 29.9 % (33.0-51.0); Hemoglobin 8.9 g/dL (11.5-16.0); IMMATURE GRAN ABSOLUTE AUTO 0.07 K/mm3 (0.00-0.10); IMMATURE GRAN PERCENT AUTO 1 % (0-1); LYMPHOCYTES PERCENT AUTO 12 % (21-46); MONOCYTES ABSOLUTE AUTO 0.95 K/mm3 (0.16-1.47); MONOCYTES PERCENT AUTO 10 % (4-13); Mean Corpuscular HGB Conc 29.8 g/dL (31.5-36.5); Mean Corpuscular Volume 97 fL (80-100); Mean Platelet Volume 9.5 fL (9.1-12.4); NEUTROPHILS ABSOLUTE AUTO 7.01 K/mm3 (1.96-9.15); NEUTROPHILS PERCENT AUTO 76 % (41-73); Platelet Count 131 K/mm3 (150-400); RDW Standard Deviation 57.2 fL (35.1-46.3); Red Blood Cell Count 3.07 M/mm3 (3.80-5.20); White Blood Cell Count 9.28 K/mm3 (4.00-11.30)
[2019-12-10 04:44] LABS: International Normalized Ratio 1.14; Prothrombin Time Results 12.1 Sec (9.7-11.5)
[2019-12-10 04:48] LABS: Albumin, Blood 2.3 g/dL (3.4-5.0); Anion Gap 6 mmol/L (6-16); Blood Urea Nitrogen 49 mg/dL (8-24); Bun/Creatinine Ratio 19.4 (12.0-20.0); CO2, Blood 27 mmol/L (21-32); Calcium, Blood 8.1 mg/dL (8.5-10.1); Chloride, Blood 104 mmol/L (98-108); Creatinine, Blood 2.52 mg/dL (0.40-1.00); Glomerular Filtration Rate 20 (60-); Glucose, Blood 101 mg/dL (70-99); Phosphorus, Blood 5.2 mg/dL (2.5-4.9); Potassium, Blood 4.4 mmol/L (3.5-5.5); Sodium, Blood 137 mmol/L (136-145)
--- NOTE | 2019-12-10 15:56 | NUR ---
ANTICOAGULATION: BROUGHT TO RN'S ATTENTION BY DR. NUGENT THAT PATIENT MAY REQUIRE ANTICOAGULATION RE: RECENT DVT'S AND CARDIAC SURGERY. DISCUSSED WITH DR. BROWNING. SHE WILL PLACE NEW ORDERS. PATIENT RESTING IN BED WITH PBC'S IN PLACE.
--- NOTE | 2019-12-10 19:29 | NUR ---
SHIFT SUMMARY: PATIENT RESTED COMFORTABLY IN THE BED THROUGHOUT THE SHIFT. PATIENT DEMONSTRATED MILD ANXIETY THIS AM IN REGARDS TO THE UNCERTAINTY OF HER SURGERY. PATIENT APPEARED MORE COMFORTABLE ONCE SHE KNEW THAT THE SURGERY WOULD BE TOMORROW AROUND 12:30. PATIENT MEDICATED ONCE FOR RIGHT HIP PAIN WITH PRN MEDICATIONS (SEE EMAR). PATIENT ALLOWED FOR REPOSITIONING. PATIENT TOLERATED FOOD. ENCOURAGED PO INTAKE. PATIENT PREFERS ICE WATER. PATIENT'S URINE CONTINUED TO BE ALMOST LIGHT YELLOW. DISCUSSED PATIENT'S ANTICOAGULATION STATUS WITH DR. JUNG. (SEE NURSE'S NOTE). PROVIDED EDUCATION ON THE NEED FOR THE HEPARIN DRIP. PATIENT REPORTED UNDERSTANDING.
--- NOTE | 2019-12-10 21:15 | NUR ---
AT SHIFT CHANGE TELE CREDIT RISK ASSOCIATE NOTED PT GOING INTO AFIB WITH HR OF 120. PT ASYMPTOMATIC. STATES INTERMITTENTLY GOES INTO AFIB AT BASELINE AND TAKES AMIODORONE FOR MAINTAINED HR OVER 100 WHLE IN AFIB. SHORTLY AFTER, RECEIVED NOTICE FORM SAME TECH THAT PT CONVERTED BACK TO SR WITH RATE OF 90. 2 ALEX NOTIFIED ME PT BACK IN AFIB WTIH RATE 130.2105 JUDY NOTED PT AGAIN RETURNED TO SR AFTER APPROX 3 MIN WITH NOW RATE OF 93. WILL CONTINUE TO MONITOR AND NOTIFY IF SUSTAINED AFIB/RATE ABOVE 100.ENVIRONMENTAL ENGINEERING AIDE Brion[address] ST[address] RN AWARE.PT CONT ASYMPTOMATIC DURING CHANGES.
[2019-12-11 00:44] LABS: BASOPHILS ABSOLUTE AUTO 0.03 K/mm3 (0.00-0.23); BASOPHILS PERCENT AUTO 0 % (0-2); EOSINOPHILS ABSOLUTE AUTO 0.09 K/mm3 (0.00-0.68); EOSINOPHILS PERCENT AUTO 1 % (0-6); Hematocrit 30.6 % (33.0-51.0); Hemoglobin 9.5 g/dL (11.5-16.0); IMMATURE GRAN ABSOLUTE AUTO 0.05 K/mm3 (0.00-0.10); IMMATURE GRAN PERCENT AUTO 1 % (0-1); LYMPHOCYTES ABSOLUTE AUTO 1.01 K/mm3 (0.84-5.20); LYMPHOCYTES PERCENT AUTO 12 % (21-46); MONOCYTES ABSOLUTE AUTO 0.82 K/mm3 (0.16-1.47); MONOCYTES PERCENT AUTO 9 % (4-13); Mean Platelet Volume 9.2 fL (9.1-12.4); NEUTROPHILS ABSOLUTE AUTO 6.78 K/mm3 (1.96-9.15); NEUTROPHILS PERCENT AUTO 77 % (41-73); Platelet Count 164 K/mm3 (150-400); RDW Coefficient Variation 15.8 % (11.7-14.2); RDW Standard Deviation 54.4 fL (35.1-46.3); Red Blood Cell Count 3.28 M/mm3 (3.80-5.20); White Blood Cell Count 8.78 K/mm3 (4.00-11.30)
[2019-12-11 00:49] LABS: Mean Corpuscular Volume 93 fL (80-100)
[2019-12-11 01:04] LABS: Albumin, Blood 2.2 g/dL (3.4-5.0); Anion Gap 6 mmol/L (6-16); Blood Urea Nitrogen 46 mg/dL (8-24); Bun/Creatinine Ratio 26.6 (12.0-20.0); CO2, Blood 27 mmol/L (21-32); Calcium, Blood 8.3 mg/dL (8.5-10.1); Chloride, Blood 104 mmol/L (98-108); Creatinine, Blood 1.73 mg/dL (0.40-1.00); Glomerular Filtration Rate 30 (60-); Glucose, Blood 106 mg/dL (70-99); Phosphorus, Blood 3.5 mg/dL (2.5-4.9); Sodium, Blood 137 mmol/L (136-145)
--- NOTE | 2019-12-11 02:39 | NUR ---
NOTIFIED PER TOURIST ESCORT THAT PT HAS GONE BACK INTO AFIB AND HAS SUSTAINED FOR 10 MIN AT RATE OF 120-140'S I PLACED CALL OUT TO DR GARCIA AND AM WAITING RETURN CALL.
--- NOTE | 2019-12-11 04:22 | NUR ---
PT RECEIVED LOPRESSOR PER ORDER WITH CONTINUED HR 120 PER BATTING MACHINE OPERATOR INSULATION. CONT AFIB. I CALLED DR GARCIA AND HE ORDERED CARDIZEM PUSH 10 MG IV X1.
--- NOTE | 2019-12-11 11:00 | NUR ---
AFIB TELE REPORTS THAT PT HAS DONE INTO AFIB AND HR TRENDING UP. IN 130'S AND TOUCHING 140'S. DR ZAMBRANO CALLED AND IV METOPROLOL GIVEN.
--- NOTE | 2019-12-11 12:30 | NUR ---
TACYCARDIA HR CONTINUES TO BE ELEVATED. IN 130'S. PT DENIES FEELING ANXIOUS, PAINFUL, LIGHTHEADED, OR ANY CHANGES IN SENSATION. ASYPTOMATIC. MD CALLED AND UPDATED. NEW ORDERS RECEIVED. TELE REPORTS PT IS SHOWING MORE AFLUTTER.
--- NOTE | 2019-12-11 14:47 | NUR ---
TRANSFER TO PCU NO SURGERY TODAY DUE TO TACHYCARDIA. HEPARIN DRIP RESTARTED.
--- NOTE | 2019-12-11 15:37 | NUR ---
Patient is lying in bed and alert. Patient explains about her fall, about her recent medical issues that are preventing surgery on her hip and about her spiritual/emotional health in the midst of the medical issues. I listen empathically, normalize patient's experience and provide a calming presence and prayer. Patient responds well and shows signs of an elevated mood. I will continue to remain available to patient and family.
--- NOTE | 2019-12-11 18:10 | NUR ---
SHIFT SUMMARY PT ALERT AND ORIENTED AT THIS TIME, BUT PER REPORT HAS MOMENTS OF CONFUSION. VS STABLE. HR AFLUTTER 120'S. PT ASYMPTOMATIC. BP STABLE. AMIO GTT INFUSING PER ORDERS. HEP GTT INFUSING PER ORDERS. PT REPOSITIONED Q2H. PT MEDICATED FOR PAIN NEEDED. PT ABLE TO USE BEDPAIN TO HAVE BM THIS SHIFT. WITT PATENT AND DRAINING CLEAR YELLOW URINE. WILL CONTINUE TO MONITOR CLOSELY AND REPORT TO ONCOMING RN.
[2019-12-12 05:18] LABS: BASOPHILS ABSOLUTE AUTO 0.05 K/mm3 (0.00-0.23); BASOPHILS PERCENT AUTO 1 % (0-2); EOSINOPHILS ABSOLUTE AUTO 0.08 K/mm3 (0.00-0.68); EOSINOPHILS PERCENT AUTO 1 % (0-6); Hematocrit 32.4 % (33.0-51.0); Hemoglobin 10.1 g/dL (11.5-16.0); IMMATURE GRAN ABSOLUTE AUTO 0.08 K/mm3 (0.00-0.10); IMMATURE GRAN PERCENT AUTO 1 % (0-1); LYMPHOCYTES ABSOLUTE AUTO 1.38 K/mm3 (0.84-5.20); LYMPHOCYTES PERCENT AUTO 16 % (21-46); MONOCYTES ABSOLUTE AUTO 0.93 K/mm3 (0.16-1.47); MONOCYTES PERCENT AUTO 11 % (4-13); Mean Corpuscular HGB 28.9 pg (26.0-34.0); Mean Corpuscular HGB Conc 31.2 g/dL (31.5-36.5); Mean Corpuscular Volume 93 fL (80-100); NEUTROPHILS ABSOLUTE AUTO 6.18 K/mm3 (1.96-9.15); NEUTROPHILS PERCENT AUTO 71 % (41-73); Platelet Count 175 K/mm3 (150-400); RDW Coefficient Variation 15.9 % (11.7-14.2); RDW Standard Deviation 53.8 fL (35.1-46.3)
[2019-12-12 05:40] LABS: Albumin, Blood 2.2 g/dL (3.4-5.0); Anion Gap 8 mmol/L (6-16); Blood Urea Nitrogen 41 mg/dL (8-24); Bun/Creatinine Ratio 30.6 (12.0-20.0); CO2, Blood 28 mmol/L (21-32); Calcium, Blood 8.6 mg/dL (8.5-10.1); Chloride, Blood 100 mmol/L (98-108); Creatinine, Blood 1.34 mg/dL (0.40-1.00); Glomerular Filtration Rate 41 (60-); Glucose, Blood 120 mg/dL (70-99); Phosphorus, Blood 3.6 mg/dL (2.5-4.9); Potassium, Blood 3.6 mmol/L (3.5-5.5); Sodium, Blood 136 mmol/L (136-145)
--- NOTE | 2019-12-12 06:01 | NUR ---
SHIFT SUMMARY. FEW BOUTS OF CONFUSION THRU NOC BUT USUALLY CLEAR MENTATION AND SOME FORGETFULNESS WHEN FIRST AWAKENED. ASSUMED CARE AT 1900 AND NOTED SWELLING MILD AT RT HIP AREA AND VERY TINY BRUISES. STEPHANIE AREA A LITTLE SWOLLEN AND STEPHANIE / CATH CARE GIVEN . NO SIKN BREAK DOWN NOTED . BAACK SIDE WNL. ENC TO TURN COUGH AND DEEP BREATHE AND NEEDS REMINDER. BBC NOTED. AND NO COUGH EXCEPT WHEN DEEP BREATHING FOR COUGH AND DEEP BREATHE. AMIODARONE REVIEWED W/ DAY STAFF AND 1MG/MIN TO RUN UNTIL 2200 MAKING 6 HR. AT 2200 CHANGED RATE TO 0.5MG/MIN FOR NEXT 18 HR. NO LONGER ON PO AMIODARONE.A FLUTTER 120 RANGE UNTIL CONVERT TO SR AT 2315 AND REMAINED IN THIS RHYTHM ALL NOC. PAIN CONTROL VERY SATISFACTORY W/ MINIMAL IV PAIN MED. ULTRAM ALSO GIVEN. PAINFUL WHEN REPOSITIONED Q 2-3 HR. AND THEN FALLS OFF TO SLEEP. SIPS H2O UNTIL MID NOC INCASE THEY WOULD CONSIDER SURGERY TODAY. AND NO HS FOOD DESIRED, WILL REVIEW I.S. THIS AM.
--- NOTE | 2019-12-12 07:16 | NUR ---
RHYTHM CHANGE AT 0630 CONVERTED TO AF RVR 120'S WHILE ASLEEP/ THEN BACK TO SR AFTER ABOUT 30 MIN. ASYMPTOMATIC. COMFORTABLE FOR 2 HR NOW ON LT SIDE. SR NOW 90 RATE
--- NOTE | 2019-12-12 15:16 | NUR ---
Patient tells me that she is scheduled for surgery between 1600 and 1700 today and that she is hoping it will happen. Patient tells me that she trusts God's timing though. Patient is very sleepy during my visit and although patient asks for prayer she falls asleep mid-prayer. She does not realized I finished praying until I am sanitizing my hand as I leave the room. Patient verbalizes appreciation for my visit and prayer.
--- NOTE | 2019-12-12 17:54 | NUR ---
SHIFT SUMMARY PT ALERT AND ORIENTED, BUT FORGETFUL AT TIMES. VS STABLE. HR HAS BEEN NSR ALL SHIFT. AMIO GTT WAS STOPPED THIS SHIFT. BP STABLE. PT MEDICATED AND REPOSITIONED FOR PAIN NEEDED. PT REPOSITIONED Q2H. PT HAS BEEN NPO FOR TOTAL HIP TODAY. HEP GTT STOPPED AT 1030. PT TO BE TAKEN TO SURGERY AT THIS TIME.
--- NOTE | 2019-12-12 18:15 | NUR ---
BROUGHT TO PACU FOR PRE OP PRIOR TO SURGERY. ADMISSION STARTED FOR SURGERY
--- NOTE | 2019-12-12 18:48 | NUR ---
BLOOD DRAWN PER ORDERS AND SENT TO LAB
[2019-12-12 19:12] LABS: Albumin, Blood 2.1 g/dL (3.4-5.0); Anion Gap 9 mmol/L (6-16); Blood Urea Nitrogen 34 mg/dL (8-24); Bun/Creatinine Ratio 27.2 (12.0-20.0); CO2, Blood 28 mmol/L (21-32); Calcium, Blood 8.5 mg/dL (8.5-10.1); Chloride, Blood 99 mmol/L (98-108); Creatinine, Blood 1.25 mg/dL (0.40-1.00); Glomerular Filtration Rate 44 (60-); Glucose, Blood 96 mg/dL (70-99); Phosphorus, Blood 3.6 mg/dL (2.5-4.9); Potassium, Blood 3.1 mmol/L (3.5-5.5); Sodium, Blood 136 mmol/L (136-145)
--- NOTE | 2019-12-12 19:22 | NUR ---
ASSUMED PATIENT CARE. PATIENT OFF UNIT IN SURGERY AT THIS TIME.
--- NOTE | 2019-12-12 19:55 | NUR ---
PATIENT RETURNED FORM OR, NO SIGNS OF ACUTE DISTRESS, WCTM.
[2019-12-13 03:49] LABS: BASOPHILS ABSOLUTE AUTO 0.04 K/mm3 (0.00-0.23); BASOPHILS PERCENT AUTO 1 % (0-2); EOSINOPHILS ABSOLUTE AUTO 0.07 K/mm3 (0.00-0.68); EOSINOPHILS PERCENT AUTO 1 % (0-6); Hematocrit 31.4 % (33.0-51.0); Hemoglobin 9.6 g/dL (11.5-16.0); IMMATURE GRAN ABSOLUTE AUTO 0.07 K/mm3 (0.00-0.10); IMMATURE GRAN PERCENT AUTO 1 % (0-1); LYMPHOCYTES ABSOLUTE AUTO 0.98 K/mm3 (0.84-5.20); LYMPHOCYTES PERCENT AUTO 12 % (21-46); MONOCYTES PERCENT AUTO 11 % (4-13); Mean Corpuscular HGB 28.5 pg (26.0-34.0); Mean Corpuscular HGB Conc 30.6 g/dL (31.5-36.5); Mean Corpuscular Volume 93 fL (80-100); Mean Platelet Volume 9.2 fL (9.1-12.4); NEUTROPHILS ABSOLUTE AUTO 6.16 K/mm3 (1.96-9.15); NEUTROPHILS PERCENT AUTO 75 % (41-73); Platelet Count 173 K/mm3 (150-400); RDW Coefficient Variation 15.6 % (11.7-14.2); RDW Standard Deviation 53.4 fL (35.1-46.3); Red Blood Cell Count 3.37 M/mm3 (3.80-5.20); White Blood Cell Count 8.22 K/mm3 (4.00-11.30)
[2019-12-13 04:08] LABS: Albumin, Blood 1.9 g/dL (3.4-5.0); Anion Gap 6 mmol/L (6-16); Blood Urea Nitrogen 32 mg/dL (8-24); Bun/Creatinine Ratio 28.8 (12.0-20.0); CO2, Blood 31 mmol/L (21-32); Calcium, Blood 8.2 mg/dL (8.5-10.1); Chloride, Blood 101 mmol/L (98-108); Creatinine, Blood 1.11 mg/dL (0.40-1.00); Glomerular Filtration Rate 51 (60-); Glucose, Blood 99 mg/dL (70-99); Phosphorus, Blood 3.8 mg/dL (2.5-4.9); Potassium, Blood 3.1 mmol/L (3.5-5.5); Sodium, Blood 138 mmol/L (136-145)
--- NOTE | 2019-12-13 05:15 | NUR ---
NO ACUTE EVENTS THIS SHIFT. PATIENT DID NOT HAVE HIP SURGERY, PLAN IS FOR SURGERY TOMORROW MID-DAY IF MORNING BNP IS ACCEPTABLE. PATIENT WAS PAINFUL AT START OF SHIFT, WELL MANAGED WITH ULTRAM AND ONE DOSE OF DILAUDID. VSS, NO SIGNS OF ACUTE DISTRESS THROUGH SHIFT.
--- NOTE | 2019-12-13 07:18 | NUR ---
RELINQUISHED PATIENT CARE.
--- NOTE | 2019-12-13 11:20 | NUR ---
PT TO DAY SURGERY AT THIS TIME. PT A&Ox3; CALM AND COOPERATIVE WITH CARE. CONFUSED AT TIMES. SON AT BEDSIDE. PT BEDREST, REPOSITIONED FOR COMFORT THIS AM. PT DENIES PAIN AT REST, STATES ONLY PAINFUL WITH REPOSITIONING. PT DENIES SOB, CHEST PAIN/PRESSURE, NAUSEA AND DIZZINESS. PT HR CONVERTED TO AFLUTTER AT APPROX 0949 THIS AM, DR PURDY NOTIFIED, EKG AND LOPRESSIOR IV GIVEN; PER TELE PT CONVERTED TO SR AT 1107. WITT PATENT AND DRAINING. OTHER VSS. MAGNESIUM LAB LAB LOW, NOTIFIED DR GALLAGHER, NEW ORDERS ENTERED. PT RECEIVED IV MAG AND KCL AND PO KCL THIS AM. PT PT DAUGHTER UPDATED THIS AM ON STATUS AND THEN WHEN PT TAKEN TO DAY SURGERY.
--- NOTE | 2019-12-13 11:26 | NUR ---
PATIENT BROUGHT TO [facility] AND ADMISSION FOR SURGERY STARTED WENT OVER ALL INFORMATION AND IT IS ALL STILL CORRECT FROM YESTERDAY WITH THIS RN ON ADMISSION LAST NIGHT FOR THIS SAME SURGERY. VSS
--- NOTE | 2019-12-13 11:53 | NUR ---
POTASSIUM AND MAGNESIUM FINISHED AT 1153 AND 1135. IV FLUSHED AND LR HUNG ORDERED.
--- NOTE | 2019-12-13 13:39 | NUR ---
12/13/19 1339 Jose L Self PATIENT ARRIVED TO OR WITH WITT CATH IN PLACE. ON SCHEDULED ANTIBIOTICS.
--- NOTE | 2019-12-13 16:24 | NUR ---
PT ARRIVED TO THE ROOM AT 1600. PT ALERT AND ORIENTED. SHE RATES PAIN AT 2/10 AND DENIES NEED FOR PAIN MEDICATION. SHE DENIES NAUSEA. SHE IS ABLE TO WIGGLE HER TOES. AQUACEL TO RIGHT SIDE IS C/D/I.
--- NOTE | 2019-12-13 16:45 | NUR ---
PT BELONGING TAKE TO ROOM 216; TELEPHONE REPORT GIVEN TO RN ASSUMING CARE OF PT AND DAUGHTER NOTIFIED OF ROOM TRANSFERS.
[2019-12-13 17:09] LABS: Anion Gap 9 mmol/L (6-16); Blood Urea Nitrogen 30 mg/dL (8-24); Bun/Creatinine Ratio 25.6 (12.0-20.0); CO2, Blood 26 mmol/L (21-32); Calcium, Blood 8.3 mg/dL (8.5-10.1); Chloride, Blood 102 mmol/L (98-108); Creatinine, Blood 1.17 mg/dL (0.40-1.00); Glomerular Filtration Rate 48 (60-); Glucose, Blood 111 mg/dL (70-99); Phosphorus, Blood 4.5 mg/dL (2.5-4.9); Potassium, Blood 3.9 mmol/L (3.5-5.5); Sodium, Blood 137 mmol/L (136-145)
--- NOTE | 2019-12-13 17:16 | NUR ---
SHIFT SUMMARY PT HAD A R ZOFIA WITH DR. VIVAR TODAY. SHE IS ALERT AND ORIENTED. SHE RATES HER PAIN MILD AT THIS TIME. PT IS ALERT AND ORIENTED. HER DAUGHTER TRISTEN WAS UPDATED WHEN SHE RETURNED TO HER ROOM. VSS. WILL MONITOR UNTIL REPORT TO ONCOMING RN.
[2019-12-14 04:18] LABS: BASOPHILS ABSOLUTE AUTO 0.01 K/mm3 (0.00-0.23); BASOPHILS PERCENT AUTO 0 % (0-2); EOSINOPHILS PERCENT AUTO 0 % (0-6); Hematocrit 26.8 % (33.0-51.0); Hemoglobin 8.2 g/dL (11.5-16.0); IMMATURE GRAN ABSOLUTE AUTO 0.15 K/mm3 (0.00-0.10); IMMATURE GRAN PERCENT AUTO 2 % (0-1); LYMPHOCYTES ABSOLUTE AUTO 0.71 K/mm3 (0.84-5.20); LYMPHOCYTES PERCENT AUTO 9 % (21-46); MONOCYTES ABSOLUTE AUTO 0.31 K/mm3 (0.16-1.47); MONOCYTES PERCENT AUTO 4 % (4-13); Mean Corpuscular HGB 28.7 pg (26.0-34.0); Mean Corpuscular HGB Conc 30.6 g/dL (31.5-36.5); Mean Corpuscular Volume 94 fL (80-100); Mean Platelet Volume 9.8 fL (9.1-12.4); NEUTROPHILS ABSOLUTE AUTO 7.01 K/mm3 (1.96-9.15); NEUTROPHILS PERCENT AUTO 86 % (41-73); Platelet Count 155 K/mm3 (150-400); RDW Coefficient Variation 15.5 % (11.7-14.2); RDW Standard Deviation 53.6 fL (35.1-46.3); Red Blood Cell Count 2.86 M/mm3 (3.80-5.20); White Blood Cell Count 8.19 K/mm3 (4.00-11.30)
[2019-12-14 04:37] LABS: Albumin, Blood 1.7 g/dL (3.4-5.0); Anion Gap 6 mmol/L (6-16); Blood Urea Nitrogen 43 mg/dL (8-24); Bun/Creatinine Ratio 32.8 (12.0-20.0); CO2, Blood 30 mmol/L (21-32); Calcium, Blood 7.8 mg/dL (8.5-10.1); Chloride, Blood 101 mmol/L (98-108); Creatinine, Blood 1.31 mg/dL (0.40-1.00); Glomerular Filtration Rate 42 (60-); Glucose, Blood 149 mg/dL (70-99); Phosphorus, Blood 4.7 mg/dL (2.5-4.9); Potassium, Blood 4.2 mmol/L (3.5-5.5); Sodium, Blood 137 mmol/L (136-145)
--- NOTE | 2019-12-14 04:46 | NUR ---
SHIFT SUMMARY POD 1 R HIP AALIYAH ARTHROPLASTY AA0X4. AQUACEL CDI. DENIES PAIN DURING SHIFT. SENSATION INTACT PT CAN MOVE EXTREMETIES. DENIES NAUSEA. WITT PATENT AND DRAINING DURING SHIFT. TELE IN PLACE NSR DURING SHIFT. PT DENIES SOB. PLAN TO WORK WITH THERAPY TODAY.
--- NOTE | 2019-12-14 13:24 | NUR ---
Patient voices appreciation for surgeon and staff that took time to pray with her before the surgery. Patient states that she is thankful that the pain she had prior to the surgery is almost entirely gone. She realizes she has a long road ahead but she is trusting God for extra strength and help. I listen empathically and provide prayer. Patient responds well and shows signs of an elevated mood. I will continue to remain avialble to patient and family.
--- NOTE | 2019-12-14 13:59 | NUR ---
SHIFT SUMMARY PT IS POD#1 FROM R ZOFIA WITH DR. VIVAR. PAIN HAS BEEN MINIMAL THIS SHIFT AND MANAGED WITH TYLENOL. PT WAS ABLE TO STAND AT THE EDGE OF THE BED WITH THERAPY. SHE BECAME LIGHTHEADED WITH LOW BP WHILE STANDING AT THE EDGE OF THE BED. SHE IS TOLERATING PO. AWAITING DR. GALLAGHER TO SEE PT. PT HAS HAD DECREASED URINE OUTPUT.
--- NOTE | 2019-12-14 14:24 | NUR ---
DR. GALLAGHER NOTIFIED THAT PT HAS HAD APPROXIMATELY 100ML OF URINE OUTPUT THIS SHIFT. PT HAS BEEN SALINE LOCKED AT THIS TIME, DR. GALLAGHER AWARE. CONTINUE TO MONITOR OUTPUT AT THIS TIME. WITT CATH MAY BE REMOVED PER DR. GALLAGHER.
--- NOTE | 2019-12-14 15:14 | NUR ---
ASSUMED CARE OF PT, ASSISTED OOB TO CHAIR, EDUAR MEDINA BY MALDONADO BOWLES, DENIES ANY NEED FOR PAIN MEDS AT THIS TIME, CONT. TO MONITOR FOR ANY CHANGES.
--- NOTE | 2019-12-14 18:36 | NUR ---
ASSISTED TO BSC, PT VOIDING, DENIES ANY NEED FOR PAIN MEDS AT THIST TIME, OOB TO RECLINER CHAIR MOST OF THE AFTERNOON, NO ACUTE CHANGES THIS SHIFT.
[2019-12-15 03:58] LABS: BASOPHILS ABSOLUTE AUTO 0.02 K/mm3 (0.00-0.23); BASOPHILS PERCENT AUTO 0 % (0-2); EOSINOPHILS PERCENT AUTO 0 % (0-6); Hematocrit 24.5 % (33.0-51.0); Hemoglobin 7.8 g/dL (11.5-16.0); IMMATURE GRAN PERCENT AUTO 1 % (0-1); LYMPHOCYTES ABSOLUTE AUTO 1.09 K/mm3 (0.84-5.20); LYMPHOCYTES PERCENT AUTO 7 % (21-46); MONOCYTES ABSOLUTE AUTO 0.97 K/mm3 (0.16-1.47); MONOCYTES PERCENT AUTO 6 % (4-13); Mean Corpuscular HGB 29.4 pg (26.0-34.0); Mean Corpuscular HGB Conc 31.8 g/dL (31.5-36.5); Mean Corpuscular Volume 93 fL (80-100); Mean Platelet Volume 9.7 fL (9.1-12.4); NEUTROPHILS ABSOLUTE AUTO 13.04 K/mm3 (1.96-9.15); NEUTROPHILS PERCENT AUTO 85 % (41-73); Platelet Count 169 K/mm3 (150-400); RDW Coefficient Variation 15.7 % (11.7-14.2); RDW Standard Deviation 52.6 fL (35.1-46.3); Red Blood Cell Count 2.65 M/mm3 (3.80-5.20); White Blood Cell Count 15.32 K/mm3 (4.00-11.30)
[2019-12-15 04:15] LABS: Albumin, Blood 1.8 g/dL (3.4-5.0); Anion Gap 3 mmol/L (6-16); Blood Urea Nitrogen 53 mg/dL (8-24); Bun/Creatinine Ratio 34.9 (12.0-20.0); CO2, Blood 31 mmol/L (21-32); Calcium, Blood 7.8 mg/dL (8.5-10.1); Chloride, Blood 101 mmol/L (98-108); Creatinine, Blood 1.52 mg/dL (0.40-1.00); Glomerular Filtration Rate 35 (60-); Glucose, Blood 127 mg/dL (70-99); Phosphorus, Blood 2.7 mg/dL (2.5-4.9); Potassium, Blood 3.9 mmol/L (3.5-5.5); Sodium, Blood 135 mmol/L (136-145)
--- NOTE | 2019-12-15 06:01 | NUR ---
SHIFT SUMMARY POD 2 R AALIYAH HIP AA0X4. PT UP TO BSC WITH 1 ASSIST. REPORTS PAIN MANAGED T/O SHIFT. ON 2L NC DURING NIGHT. DENIES SOB. TELE REPORTED INCREASE IN HR TO 110-120 WHEN PT WAS UP TO BSC, HR WOULD DROP ONCE BACK IN BED. POLAR JOURDAN IN PLACE DURING SHIFT. URINE OUTPUT INCREASED FROM PREVIOUS SHIFT.
[2019-12-15 13:53] LABS: Percent Saturation 14.7 % (15.0-50.0)
--- NOTE | 2019-12-15 18:43 | NUR ---
SHIFT SUMMARY PATIENT UP TO CHAIR AND TOLERATED WELL TODAY. USING BSC, VOIDING WELL. DENIES NEED FOR PAIN MED. APPETITE FAIR, TAKING PO FLUIDS. PLAN FOR D/C HOME WITH HH THIS WEEKEND. NO C/O AT THIS TIME.
[2019-12-16 04:36] LABS: BASOPHILS ABSOLUTE AUTO 0.02 K/mm3 (0.00-0.23); BASOPHILS PERCENT AUTO 0 % (0-2); EOSINOPHILS ABSOLUTE AUTO 0.07 K/mm3 (0.00-0.68); EOSINOPHILS PERCENT AUTO 1 % (0-6); Hematocrit 26.6 % (33.0-51.0); Hemoglobin 8.3 g/dL (11.5-16.0); IMMATURE GRAN ABSOLUTE AUTO 0.42 K/mm3 (0.00-0.10); IMMATURE GRAN PERCENT AUTO 4 % (0-1); LYMPHOCYTES ABSOLUTE AUTO 1.52 K/mm3 (0.84-5.20); LYMPHOCYTES PERCENT AUTO 16 % (21-46); MONOCYTES PERCENT AUTO 8 % (4-13); Mean Corpuscular HGB Conc 31.2 g/dL (31.5-36.5); Mean Corpuscular Volume 93 fL (80-100); NEUTROPHILS ABSOLUTE AUTO 6.77 K/mm3 (1.96-9.15); NEUTROPHILS PERCENT AUTO 71 % (41-73); Platelet Count 199 K/mm3 (150-400); RDW Coefficient Variation 15.9 % (11.7-14.2); RDW Standard Deviation 54.5 fL (35.1-46.3); Red Blood Cell Count 2.86 M/mm3 (3.80-5.20)
[2019-12-16 04:57] LABS: Albumin/Globulin Ratio 0.5 (0.8-1.8); Bilirubin, Total 0.5 mg/dL (0.1-1.0); Bun/Creatinine Ratio 41.9 (12.0-20.0); Calcium, Blood 7.8 mg/dL (8.5-10.1); Creatinine, Blood 1.24 mg/dL (0.40-1.00); Globulin, Blood 3.7 g/dL (2.2-4.0); Potassium, Blood 3.7 mmol/L (3.5-5.5); Total Protein, Blood 5.7 g/dL (6.4-8.2)
--- NOTE | 2019-12-16 06:32 | NUR ---
SHIFT SUMMARY: CARLITOS IS A&OX4. VSS, NO ACUTE EVENTS OVERNIGHT. SHE REPORTS ADEQUATE PAIN CONTROL WITH APAP. TOLERATING PO INTAKE WELL. ADEQUATE URINE OUTPUT. SHE IS LYING IN BED WITH HER CALL LIGHT IN REACH. WILL REPORT TO DAY SHIFT RN.
--- NOTE | 2019-12-16 16:48 | NUR ---
SHIFT SUMMARY PT A&OX4, VSS, POD3 R AALIYAH HIP, AQUACEL CDI, TEDS/SCDS/POLAR JOURDAN. PAIN MANAGED WITH TYLENOL. LUCIANA PO, RENAL DIET, DENIES N&V. AMB W/FWW & GB SBA TO CHAIR/BED/BRP. VOIDING WELL; BM TODAY. NO IV ACCESS NEEDED. WILL REPORT TO ONCOMING NOC RN.
--- NOTE | 2019-12-17 05:49 | NUR ---
SHIFT SUMMARY PT IS A/O X4. NEEDS 1X ASSIST TO BATHROOM WITH GAIT BELT AND FWW. PT TAKING TYLENOL FOR PAIN; REPORTS THIS WORKS WELL. AQUACEL TO R HIP CDI. PT IS TOLERATING PO INTAKE AND VOIDING. REPOSITIONS SELF WELL IN BED AND HAS BEEN ASSISTED PRN. NO ACUTE CHANGES OVERNIGHT.
[2019-12-17 16:10] LABS: F001-IGE EGG WHITE <0.10 kU/L (Class 0); F002-IGE MILK <0.10 kU/L (Class 0); F003-IGE CODFISH <0.10 kU/L (Class 0); F004-IGE WHEAT <0.10 kU/L (Class 0); F010-IGE SESAME SEED <0.10 kU/L (Class 0); F013-IGE PEANUT <0.10 kU/L (Class 0); F014-IGE SOYBEAN <0.10 kU/L (Class 0); F017-IGE HAZELNUT (FILBERT) <0.10 kU/L (Class 0); F020-IGE ALMOND <0.10 kU/L (Class 0); F024-IGE SHRIMP <0.10 kU/L (Class 0); F040-IGE TUNA <0.10 kU/L (Class 0); F041-IGE SALMON <0.10 kU/L (Class 0); F202-IGE CASHEW NUT <0.10 kU/L (Class 0); F256-IGE WALNUT <0.10 kU/L (Class 0); F338-IGE SCALLOP <0.10 kU/L (Class 0)
--- NOTE | 2019-12-17 18:07 | NUR ---
SHIFT SUMMARY PT A&OX4, VSS, POD4 R AALIYAH HIP, AQUACEL CDI. PAIN MANAGED WITH TYLENOL. LUCIANA PO, BOUTS OF NAUSEA TREATED WITH PHENERGAN X2. AMBULATING W/SBA/FWW/GB TO BRP/CHAIR/BED/UP IN ROOM. WILL REPORT TO ONCOMING NOC RN.
--- NOTE | 2019-12-18 04:38 | NUR ---
SHIFT SUMMARY POD 5 RIGHT AALIYAH HIP, AQUACEL C/D/I. A/OX4 WITH VSS. NO ACUTE CHANGES THIS SHIFT. DENIES N/V. REPORTS ONLY 1 BM DURING NIGHT. STATES GREEN LIQUID STOOLS HAVE STOPPED. STILL AWAITING STOOL SAMPLE. REPORTS TO HAVE SLEPT WELL. MEDICATED WITH PO TYLENOL X1 FOR PAIN. AMBULATES WITH SBA/GB/FWW. IS CURRENTLY RESTING IN BED WITH CALL LIGHT IN REACH. WILL CONT TO MONITOR AND GIVE REPORT TO ONCOMING RN.
--- NOTE | 2019-12-18 09:34 | NUR ---
RECENTLY GIVEN REPORT AND AM ASSUMING CARE OF PT.
--- NOTE | 2019-12-18 10:33 | NUR ---
CHUY GIVEN REPORT AND IS ASSUMING CARE OF PT AT THIS TIME.
[2019-12-18] MEDS ORDERED: ACET325 PO (11:11)
--- NOTE | 2019-12-18 12:15 | NUR ---
DISCHARGE: PT DC TO HOME AT THIS TIME WITH KEENA. PLAN FOR HOME HEALTH. VERBALIZED UNDERSTANDING OF INSTRUCTIONS, FOLLOW UP, PROBLEMS TO REPORT AND MEDICATIONS. SCRIPT CALLED TO [facility]. NO IV. DRESSING SUPPLIES AND ICE PACK SENT WITH PATIENT. PT LEFT VIA WHEELCHAIR TO CAR WITH BELONGINGS.
== END 2019-12-18 12:20 | disposition home health service (06) | DRG 469 ==
LOC: ER 07:05 → SURS 08:47 → PCU 08:47 → MEDS 08:47 → SURS 10:47 → PCU 12-11 14:31 → SURS 12-13 14:57
PROVIDERS: Emergency Medicine; Family Medicine; Internal Medicine; Orthopaedic Surgery; ADMIT Internal Medicine
PROC: 0SRR0J9 Replacement of Right Hip Joint, Femoral Surface with Synthetic Substitute, Cemented, Open Approach (ICD-10-PCS; principal; 2019-12-13 12:00)
DX: S72.011A Unspecified intracapsular fracture of right femur, initial encounter for closed fracture (principal); I50.43 Acute on chronic combined systolic (congestive) and diastolic (congestive) heart failure; N17.0 Acute kidney failure with tubular necrosis; I13.0 Hypertensive heart and chronic kidney disease with heart failure and stage 1 through stage 4 chronic kidney disease, or unspecified chronic kidney disease; I48.20 Chronic atrial fibrillation, unspecified; N39.0 Urinary tract infection, site not specified; W19.XXXA Unspecified fall, initial encounter; Y92.009 Unspecified place in unspecified non-institutional (private) residence as the place of occurrence of the external cause; N18.9 Chronic kidney disease, unspecified; D63.1 Anemia in chronic kidney disease; I25.10 Atherosclerotic heart disease of native coronary artery without angina pectoris; Z79.01 Long term (current) use of anticoagulants; H40.9 Unspecified glaucoma; Z95.2 Presence of prosthetic heart valve; I95.9 Hypotension, unspecified; K21.9 Gastro-esophageal reflux disease without esophagitis; D69.6 Thrombocytopenia, unspecified; Z20.828 Contact with and (suspected) exposure to other viral communicable diseases; B95.2 Enterococcus as the cause of diseases classified elsewhere; B96.89 Other specified bacterial agents as the cause of diseases classified elsewhere; I27.20 Pulmonary hypertension, unspecified; E87.6 Hypokalemia; E83.42 Hypomagnesemia
CPT/HCPCS: 36415; 51702; 70450; 71045; 72170; 73502; 73551; 73700; 80048; 80053; 80069; 81001; 82550; 82728; 83540; 83550; 83735; 83880; 85025; 85027; 85610; 85730; 86003; 86850; 86900; 86901; 87077; 87086; 87186; 87493; 88305; 88311; 93005; 93010; 96374-59; 96375-59; 97110; 97116; 97163; 97530; 99285-25; A9270; A9270-GY; C1713; C1776; C8923; J0171; J0282; J0690; J0696; J0735; J1170; J1644; J1885; J1940; J2405; J2704; J2795; J3010; J3475; J3480; J7030; J7060; J7120; U0002